=== PATIENT | male | born 1965 | race Caucasian/White ===

== ENCOUNTER → 2019-06-15 09:31 | Outpatient (CLI) | payer BC, SELFPAY | PROVIDERS: PCP Family Medicine; Visit Provider Nurse Practitioner | DX: M25.511 Pain in right shoulder (principal) ==

== ENCOUNTER → 2019-06-19 09:40 | Outpatient (CLI) | payer BC, SELFPAY ==
--- NOTE | 2019-06-19 09:44 | MR_ITS ---
PROCEDURE: MR SHOULDER RT WO CON CLINICAL INDICATION: ACUTE PAIN OF RIGHT SHOULDER Right shoulder pain with limited range of motion COMPARISON: 06/09/2019 TECHNIQUE: Routine multiplanar multi echo sequences are performed without contrast FINDINGS: Hypertrophic changes are present at the acromioclavicular joint. There is a downsloping acromion with subacromial stenosis of approximately 6 mm. There is a complete tear of the infraspinatus tendon with retraction of the musculotendinous fibers and edema within the infraspinatus muscle and fluid in the subdeltoid region at the infraspinatus area. The teres minor tendon and subscapularis tendon have an unremarkable appearance. The bicipital tendon is in place. The supraspinatus tendon appears intact. No obvious labral tear. No fracture or dislocation IMPRESSION: Complete tear of the infraspinatus tendon with retraction of the musculotendinous fibers Dictated by: Dereck Wise MD 06/20/2019 15:28 Signed by: <Electronically signed by Dereck Wise MD in [place]> 06/20/2019 15:28
== END ==
PROVIDERS: PCP Family Medicine; Visit Provider Nurse Practitioner
DX: M25.511 Pain in right shoulder (principal)
CPT/HCPCS: 73221

== ENCOUNTER → 2019-06-29 12:14 | Outpatient (CLI) | payer BC, SELFPAY ==
--- NOTE | 2019-06-29 | ECG_ITS ---
APPROVED REPORT Exam: Resting ECG HR:74 bpm ECG Measurements Heart Rate 74 AXES ND 156 P 42 QRSd 82 QRS 48 QT 372 T 48 QTc 412 <Conclusion> Normal sinus rhythm Low voltage QRS Borderline ECG Electronically signed by : Carlos Viera, 06/29/2019 17:38:40
--- NOTE | 2019-06-29 12:17 | XR_ITS ---
PROCEDURE: XR SHOULDER RT MIN 2V CLINICAL INDICATION: shoulder pain COMPARISON: Shoulder R from 06/09/2019 FINDINGS: The clavicle is intact. There is minor degenerate change of the AC joint. There is a lateral downsloping acromion process which could predispose to a mild degree of impingement syndrome. There are no soft tissue calcifications. IMPRESSION: Lateral down-sloping acromion process as described, no other significant abnormality noted Dictated by: Dr. Robbie Loo MD 06/29/2019 12:44 Signed by: <Electronically signed by Dr. Robbie Loo MD in [place]> 06/29/2019 12:44
== END ==
PROVIDERS: PCP Family Medicine; Visit Provider Orthopaedic Surgery
DX: S46.911A Strain of unspecified muscle, fascia and tendon at shoulder and upper arm level, right arm, initial encounter (principal)
CPT/HCPCS: 73030; 93005

== ENCOUNTER → 2019-06-29 14:18 | Outpatient (CLI) | payer BC, SELFPAY ==
--- NOTE | 2019-06-29 14:34 | XR_ITS ---
PROCEDURE: XR CHEST 2V CLINICAL HISTORY: pre op Smoker COMPARISON: CXR CHEST(2 VIEWS-NOT PORTABLE) from 08/12/2013 CTAC CTA-CHEST from 08/12/2013 CXR CHEST(2 VIEWS-NOT PORTABLE) from 08/13/2013 CXR CHEST(2 VIEWS-NOT PORTABLE) from 06/25/2016 FINDINGS: Borderline cardiomegaly without failure Chronic coarsening of the bronchovascular markings. Increased density in the left infrahilar region possibly due to summation artifact. Cannot exclude possibility of a developing mass/nodule. Consider chest CT for further evaluation. The remaining lungs are clear. No acute bony findings. IMPRESSION: COPD with possible left lower lobe mass. Consider chest CT for further evaluation Dictated by: Dereck Wise MD 06/29/2019 15:00 Signed by: <Electronically signed by Dereck Wise MD in [place]> 06/29/2019 15:00
[2019-06-29 14:50] LABS: Basophils % 0.4 % (0.1-2.0); Eosinophils # 0.3 K/mm3 (0.0-0.4); Eosinophils % 3.5 % (0.1-12.0); Hematocrit 51.4 % (42.0-52.0); Hemoglobin 17.1 g/dL (14.1-18.0); Lymphocytes # 2.2 K/mm3 (0.7-4.5); Lymphocytes % 30.5 % (10-50); Mean Corpuscular HGB Conc 33.2 g/dL (31.8-35.4); Mean Corpuscular Hemoglobin 32.2 pg (27.0-31.2); Mean Platelet Volume 7.5 fl (7.4-10.4); Monocytes # 0.7 K/mm3 (0.1-1.0); Monocytes % 9.1 % (1.7-9.3); Neutrophils % 56.4 % (37.0-80.0); Platelet Count 213 K/mm3 (142-424); Red Cell Distribution Width 13.5 % (11.5-17.5); White Blood Count 7.2 K/mm3 (4.8-10.8)
[2019-06-29 14:53] LABS: INR 0.94 (0.9-1.1); Prothrombin Time 9.8 seconds (9.4-11.8)
[2019-06-29 16:24] LABS: Alanine Aminotransferase 50 U/L (12-78); Albumin/Globulin Ratio 1.4 (1.1-1.8); Alkaline Phosphatase 100 U/L (46-116); Anion Gap 13.2 mEq/L (5-15); Aspartate Amino Transferase 21 U/L (15-37); Bilirubin,Total 0.4 mg/dL (0.2-1.0); Blood Urea Nitrogen 15 mg/dL (7-18); Calcium 9.2 mg/dL (8.5-10.1); Carbon Dioxide 26 mmol/L (21.0-32.0); Chloride 106 mmol/L (98-107); Creatinine,Serum 0.97 mg/dL (0.70-1.30); Estimated Glomerular Filt Rate 81 ml/min (>60); GFR (African American) 98 ML/MIN (>60); Globulin 2.8 gm/dl (1.3-3.2); Glucose 96 mg/dL (74-106); Potassium 4.2 mmoL/L (3.5-5.1); Sodium 141 mmol/L (136-145); Total Protein,Serum 6.8 gm/dL (6.4-8.2)
== END ==
PROVIDERS: Visit Provider Orthopaedic Surgery
DX: S46.911A Strain of unspecified muscle, fascia and tendon at shoulder and upper arm level, right arm, initial encounter (principal)
CPT/HCPCS: 36415; 71046; 80053; 85025; 85610

== ENCOUNTER → 2019-07-13 10:16 | Outpatient (CLI) | payer BC, SELFPAY ==
--- NOTE | 2019-07-13 10:17 | CT_ITS ---
PROCEDURE: CT CHEST WO/W CON CLINCAL INDICATION: Pre-OP Possible mass seen left chest on previous CT scan of the chest 08/12/2013 COMPARISON: CTA CTA-CHEST from 08/12/2013 TECHNIQUE: IV Contrast: 75ml Optiray 350 Axial images obtained with sagittal and coronal reformats. All CT scans at the facility use one or more dose reduction, viz: automated exposure control, ma/kV adjustment per patient size (including targeted exams where dose is matched to indication, i.e. head), or iterative reconstruction technique. Initially scans were performed without IV contrast followed by repeat scans after injection of IV contrast. FINDINGS: HEART: Unremarkable. Normal heart size. No significant pericardial effusion. There is minimal coronary artery calcification noted. MEDIASTINAL AND HILAR STRUCTURES: No mediastinal or hilar mass evident. There are several normal-sized right paratracheal, subcarinal and right hilar nodes. PULMONARY ARTERIES: Unremarkable, no obvious PE although the contrast timing was not set up for a PE exam AORTA: No acute finding. No thoracic aortic aneurysm or dissection evident. LUNGS: The lung valentin are fairly well expanded and appear clear of infiltrate. There is no abnormal mass in either lung field. There is mild diffuse pleural thickening and/or scarring left apex and left posterior gutter. Possibly there has been a previous empyema in the past. PLEURAL SPACES: No significant effusion. No evidence of pneumothorax. BONY STRUCTURES: There are moderate multilevel degenerate changes of the thoracic spine.. LYMPH NODES: There is a slightly enlarged fatty replaced node in the left axilla. UPPER ABDOMEN: Both adrenal glands appear normal. ADDITIONAL FINDINGS: No other significant abnormalities. IMPRESSION: Nonacute chest findings Dictated by: Dr. Robbie Loo MD 07/13/2019 11:[address] Robbie Loo MD in [place] 07/13/2019 11:55
== END ==
PROVIDERS: PCP Family Medicine; Visit Provider Orthopaedic Surgery
DX: Z01.811 Encounter for preprocedural respiratory examination (principal)
CPT/HCPCS: 71270; Q9967

== ENCOUNTER 2019-07-19 10:10 | Observation (INO) ==
--- NOTE | 2019-07-19 10:49 | Progress Note ---
[facility] Anesthesia Checklist - Patient Identification Patient Identification: Arm Band, Verbal (Name & ) - Structural Data Admitted From: Home Planned Operative Procedure/s: r dmitriy rcr Consent for Planned Operative Procedure(s) Verified: Yes Verified Documents: History and Physical - NPO Status Verified Time NPO: 00:00 - Additional verifications Patient : No Anesthesia Reactions: No Hx Blood Transfusions: No Blood Transfusion Reaction: No Cephalosporin Allergy: No Previous Colonoscopy: No - Cardiovascular Assessment Heart Sounds: S1 & S2 Pulse Strength: Baseline Pulse Rhythm: Regular Peripheral Edema: No - Airway Assessment C-Spine Mobility Assessed: Yes TMJ Mobility Assessed: Yes Dentition: Good Dentition - Neurological Assessment Level of Consciousness: Awake, Alert, Appropriate Hx Seizures: No Numbness or tingling in extremities: No - Anesthesia Plan Anesthesia Risk discussed: Yes Anesthesia Plan: Verified ASA Class: III Anesthesia Type: General [facility] History I have reviewed the patient's past medical history: Yes Medical History: Reports:: Gastroesophageal Reflux Disease(GERD) Denies:: Cancer, Diabetes Mellitus Type 1, Diabetes Mellitus Type 2, Internal Pacemaker, MRSA *Have you ever received a pneumonia vaccine?: No *Have you received a flu vaccine this season?: No Other Medical History: Reports: Arthritis Anesthesia experience/problems:: none Laterality Cases: Right: Arthroscopy Knee, Other Other Surgeries: Yes: Other. No: Pacemaker Amputation: No - *Social History Educational Level: Completed High School Smoking Status: Current every day smoker Tobacco Type: cigarettes # Packs/Day (cigarettes): 1 Alcohol Intake: current Alcohol Intake Frequency:: holidays/special occasions only Substance Use Type: unknown *Occupational Status:: retired *Travel in the last 8 weeks: None Family Hx:: No significant family history
--- NOTE | 2019-07-19 17:28 | Progress Note ---
[facility] Anesthesia Record Part II Discharge Time: 17:50 Destination: [facility] PACU nurse assessment reviewed?: Yes Patient Condition:: Good Anesthesia Complications:: None Swallowing reflex intact?: Yes Cyanosis?: No
--- NOTE | 2019-07-19 17:28 | Progress Note ---
[facility] Anesthesia Record Part I Intake, IV Amount: 2,000 Estimated blood loss (mL): 10 Urine output (mL): 700 Blood Pressure: 124/71 SaO2: 90 Pulse Rate: 87 Respiratory Rate: 16 Temperature: 97 F Patient is:: Drowsy, Stable Stable to PACU at:: 17:20
--- NOTE | 2019-07-19 21:28 | Operative Note ---
Date of procedure: 07/19/19 Pre-op Diagnosis:: RIGHT shoulder rotator cuff tear, AC joint arthropathy, possible biceps tendinopathy Post-op Diagnosis:: RIGHT shoulder rotator cuff tear, AC joint arthropathy, biceps tendinopathy Procedure performed:: RIGHT shoulder arthroscopy, biceps tenodesis, rotator cuff repair, distal clavicle excision Surgeon:: Yovana Andrade MD Automobile Detailer(s):: Vasquez Burton MD TRAILHEAD CONSTRUCTION WORKER:: Jayro Silva Anesthesia: GETA, regional, local Estimated blood loss (mL): 10 Clinical Note:: 54 year old right hand dominant male who sustained an injury to the right shoulder around 1 month ago. He had an 800lb car port dropped on that shoulder, which created significant pain. He went to the Emergency Room, where XR were negative; he was placed in an arm sling and given toradol/prednisone. His pain did not improve, so he was seen by his primary care physician, who ordered an MRI. No neck pain, no numbness or tingling in the arm. He has never injured this shoulder before nor has he had surgery on it. He has a history of nephrolithiasis (none currently), but denies other medical conditions. He is a smoker and smokes 1ppd; denies shortness of breath or chest pain at baseline or with exertion. His medications include: dicyclomine, methocarbamol, naproxen, ranitidine and tamulosin. Ketorolac and prednisone were added after his current injury. He is allergic to levofloxacin. MRI demonstrated a tear of the RTC (infraspinatus, complete w/mild retraction); biceps was unremarkable but that patient has anterior joint pain. Prior to the injury he had occasional sharp pain over the AC joint. I discussed treatment options with the patient, including PT/non-operative therapy vs surgical repair. Ideally I recommend RTC repair, but he is a heavy smoker. I counseled him on the risk of RTC repair failure (failure to heal or retearing) in smokers, and that he absolutely needs to quit smoking to optimize the chance he has a good outcome. Despite this risk, he is young and active, and I feel at least an attempt at repair is warranted, even if it ultimately fails. The patient vocalized understanding of the risk he is at being a smoker, and would like to proceed with surgery. He was evaluated and cleared by his primary care physician. I discussed the risks of surgery with the patient, including bleeding, infection, neurovascular damage, persistent pain, rotator cuff repair failure, and need for further surgery in the future; the patient vocalized understanding and provided informed consent. Operative findings:: rotator cuff repair = open, implants: Giraldo [employer] Nephew Healicoil 4.75mm suture anchor x1, footprint ultra suture anchor x1, Q-fix suture anchor x1 biceps tenodesis = open, implant: [employer]hew Q-fix suture anchor x1 distal clavicle excision = open Operative note:: The patient was identified in preoperative holding and the right shoulder signed by myself. Consent was reviewed with the patient and all questions answered. Interscalene nerve block was performed by anesthesia and the patient was taken to the OR. He was placed supine on the operative table, 2 g Ancef infused and general anesthesia induced. The patient was then positioned into the beachchair position with the head in a neutral position and well supported with all bony prominences padded. The right shoulder was then prepped and draped in the usual sterile fashion for shoulder arthroscopy. Timeout was performed, identifying the correct patient, correct procedure, and correct site. I began the procedure by making a standard posterior viewing portal through which a 30 degree arthroscope was inserted into the shoulder. I began with a diagnostic scope of the glenohumeral joint. There was a significant amount of labral fraying superiorly and the biceps itself showed mild degeneration and longitudinal tearing. Using a spinal needle and an outside in technique an anterior working portal was established and a 7 mm cannula placed. Through this cannula a probe was placed and used to palpate the intraarticular structures and complete the diagnostic arthroscopy. No loose bodies were seen in the axillary pouch, the articular cartilage of the glenoid and humeral head were seen to be in good condition with no significant thinning or focal defects. The rotator cuff did appear to be torn from inside the joint, and I suspected that it was confined to the infraspinatus. A spinal needle was used to penetrate the biceps tendon and PDS suture placed to tag it. Next, arthroscopic scissors were used to perform a biceps tenotomy and the tendon was transected at its attachment site/anchor. Shaver was then used to debride the tendon stump remaining on the anchor side as well as some additional labral fraying. The scope was then withdrawn from the joint and placed into the subacromial space. A lateral portal was established with a spinal needle and through this portal a shaver was placed. Subacromial decompression was then performed and the infraspinatus tear identified. At this point the shoulder had begun to swell significantly, as the patient is already a large man and fluid extravasation created a situation in which arthrosocpic rotator cuff tear would be difficult. I made the decision to proceed with open rotator cuff repair. A longitudinal incision was made over the lateral aspect of the right shoulder over the junction of the anterior middle thirds of the deltoid. This incision was approximately 5 cm long. Skin was incised with a 10 blade and subcutaneous tissue bluntly spread with Metzenbaum scissors. The raphae at the junction of the anterior and middle thirds of the deltoid was identified and bluntly spread with jayy as well. The underlying rotator cuff was identified with a small amount of overlying bursal tissue. The bursa was excised and rotator cuff tear was identified. The tear was small, full-thickness and confined to the infraspinatus. The tear was repaired with 2 suture anchors: one Giraldo [employer] Nephew Healicoil anchor medially, with suture tape through the cuff in a vertical mattress fashion. The anchor was loaded with a second suture as well, which was passed through the tendon; four total suture limbs were threaded through the tendon. All 4 sutures were then loaded into a lateral row anchor, another Giraldo [employer] Nephew anchor, and placed laterally, compressing the tendon to its footprint. A small dog ear was identified in the posterior aspect of the tendon; this was repaired with a free needle and Q-fix anchor (all suture anchor). The final portion of the procedure was the biceps tenodesis and given that we were now performing an open procedure, we were able to externally rotate the shoulder and identified the biceps tendon within the bicipital groove. The tendon was extracted from the groove and the tendon sheath debrided. The biceps was then tenodesed with another Q-fix suture anchor in a suprapectoral position within the bicipital groove. The patient expressed the desire for a distal clavicle excision pre-operatively, so a small incision was made over the AC joint, subcutaneous tissue bluntly dissected and the joint capsule split and elevated off the joint. A small microsagittal saw was used to resect the distal 3-4mm of bone from the distal clavicle. This concluded the procedure and all wounds were irrigated with sterile saline and then closed in a layered fashion. Sterile dressings were applied and the patient placed in a shoulder immobilizer, extubated and transferred to PACU in good condition. There were no complications during this case. Tourniquet time (min): 0 Condition: stable Disposition: PACU Specimens:: none Complications:: none
--- NOTE | 2019-07-19 22:10 | History & Physical Report ---
*Admission Date: 07/19/19 *Reason for consult:: hypoxemia, shortness of breath s/p R shoulder arthroscopy *History of present illness: 54yo M admitted for overnight observation after R shoulder arthroscopy. The patient underwent RTC repair, biceps tenodesis and distal clavicle excision performed under general anesthesia with region nerve block (interscalene), supplemented with local at the incision sites. Surgery went well without complication, but in PACU his O2 saturation hovered in the upper 80s/low 90s on room air. He felt slightly short of breath and did not feel comfortable with discharge home. He was admitted with supplemental oxygen and continuous pulse oximetry. [facility] History I have reviewed the patient's past medical history: Yes Medical History: Reports:: Gastroesophageal Reflux Disease(GERD) Denies:: Cancer, Diabetes Mellitus Type 1, Diabetes Mellitus Type 2, Internal Pacemaker, MRSA, Seizures *Have you ever received a pneumonia vaccine?: No *Have you received a flu vaccine this season?: No Other Medical History: Reports: Arthritis. Denies: Blood Transfusion Reaction Anesthesia experience/problems:: none Laterality Cases: Right: Arthroscopy Knee, Arthroscopy Shoulder, Other Other Surgeries: Yes: Other. No: Pacemaker Amputation: No - *Social History Educational Level: Completed High School Smoking Status: Current every day smoker Tobacco Type: cigarettes # Packs/Day (cigarettes): 1 Alcohol Intake: current Alcohol Intake Frequency:: holidays/special occasions only Substance Use Type: unknown *Occupational Status:: retired Housing: house Household Members: spouse *Travel in the last 8 weeks: None Family Hx:: No significant family history Review of Systems - Review of Systems Review of systems:: pertinent systems reviewed and negative unless documented below Meds Home Medications Medication Instructions Recorded Confirmed Type Oxycodone HCl/Acetaminophen 1 tab PO QID PRN 07/18/19 07/19/19 History [Percocet 7.5/325mg tablet] Naproxen Sodium 550 mg PO NEEDED PRN 07/19/19 07/19/19 History Trazodone HCl 150 mg PO HS 07/19/19 07/19/19 History Allergies Allergy/AdvReac Type Severity Reaction Status Date / Time levofloxacin [From Levaquin] Allergy Verified 07/05/19 11:28 adhesive AdvReac Unknown Verified 07/15/19 22:04 Exam Vital signs and Labs for Last 24 Hours: Temp Pulse Resp BP Pulse Ox 97.9 F 93 H 16 121/65 93 L 07/19/19 21:30 07/19/19 21:30 07/19/19 21:30 07/19/19 21:30 07/19/19 21:30 Laboratory Results - last 24 hr 07/19/19 13:15: Urine Color Yellow, Urine Appearance Clear, Urine pH 7.5, Ur Specific [place] 1.015, Urine Protein Negative, Urine Glucose (UA) Negative, Urine Ketones Negative, Urine Blood Negative, Urine Nitrate Negative, Urine Bilirubin Negative, Urine Urobilinogen 1.0, Ur Leukocyte Esterase Negative, Urine WBC Occasional, Calcium Oxalate Crystal 3+ I & O for Last 24 hours: Intake & Output 07/17/19 07/18/19 07/19/19 07/20/19 11:59 11:59 11:59 11:59 Intake Total 2300 / 2300 Output Total 850 / 850 Balance 1450 / 1450 Weight 280 lb Narrative: exam as performed in PACU: - *Routine HEENT Exam Head: Present: normocephalic Eye: Present: EOMI ENT: Present: mucous membranes moist - *Routine Respiratory Exam Absent: respiratory distress - *Routine Cardiovascular Exam Present: RRR - *Routine Abdominal Exam Present: soft. Absent: tenderness - *Routine Extremities Exam Comments: RUE in shoulder immobilizer dressings c/d/i, no strikethrough wiggles fingers; AIN/PIN/ulnar nerves motor intact sensation diminished in m/r/u distributions; nerve block still in effect palpable radial pulse at the wrist RUE Results - Labs Labs: All other labs normal. Assessment and Plan (1) Rotator cuff tear Current visit: Yes Status: Acute Category: Medical Code(s): M75.100 - Unspecified rotator cuff tear or rupture of unspecified shoulder, not specified as traumatic (2) Hypoxemia Current visit: Yes Status: Acute Category: Medical Code(s): R09.02 - Hypoxemia - Assessment and plan all Dx Assessment and Plan for all problems:: 54yo M with hypoxemia s/p R shoulder arthroscopy with RTC repair, biceps tenodesis, distal clavicle excision -- continuous pulse oximetry -- supplemental O2 PRN to maintain SaO2 >92% -- chest XR -- continue sling RUE, icer shoulder PRN; NWB RUE -- SCDs BLE -- encourage IS 10x/hr -- Dr. Haider to see in am
[2019-07-20 06:46] LABS: Basophils % 0.1 % (0.1-2.0); Eosinophils # 0.1 K/mm3 (0.0-0.4); Eosinophils % 0.5 % (0.1-12.0); Hematocrit 47.6 % (42.0-52.0); Hemoglobin 15.3 g/dL (14.1-18.0); Lymphocytes # 1.3 K/mm3 (0.7-4.5); Lymphocytes % 7.9 % (10-50); Mean Corpuscular HGB Conc 32.2 g/dL (31.8-35.4); Mean Corpuscular Volume 99.3 fl (80-94); Mean Platelet Volume 8.8 fl (7.4-10.4); Monocytes # 0.9 K/mm3 (0.1-1.0); Monocytes % 5.4 % (1.7-9.3); Neutrophils # 14.4 K/mm3 (1.8-7.8); Neutrophils % 86.1 % (37.0-80.0); Platelet Count 189 K/mm3 (142-424); Red Cell Distribution Width 13.5 % (11.5-17.5); White Blood Count 16.8 K/mm3 (4.8-10.8)
--- NOTE | 2019-07-20 07:21 | Consult Report ---
*Admission Date: 07/19/19 *Reason for consult:: Postoperative hypoxia *History of present illness: 54yo M admitted for overnight observation after R shoulder arthroscopy. The patient underwent RTC repair, biceps tenodesis and distal clavicle excision performed under general anesthesia with region nerve block (interscalene), supplemented with local at the incision sites. Surgery went well without complication, but in PACU his O2 saturation hovered in the upper 80s/low 90s on room air. He felt slightly short of breath and did not feel comfortable with discharge home. He was admitted with supplemental oxygen and continuous pulse oximetry. Patient continued to have brief desaturations into the high 80s overnight. He does endorse a congested feeling in his chest. He did not sleep well as he is used to sleeping on his side and on a wedge pillow. Sleeping on his back was uncomfortable. He has not had any significant sputum production. He has not had any identified fevers nor has he had chills. Chest x-ray was performed shortly after admission and interpretation overnight is mild CHF with infiltrate versus atelectasis [facility] History I have reviewed the patient's past medical history: Yes Medical History: Reports:: Gastroesophageal Reflux Disease(GERD) Denies:: Cancer, Diabetes Mellitus Type 1, Diabetes Mellitus Type 2, Internal Pacemaker, MRSA, Seizures *Have you ever received a pneumonia vaccine?: No *Have you received a flu vaccine this season?: No Other Medical History: Reports: Arthritis. Denies: Blood Transfusion Reaction Anesthesia experience/problems:: none Laterality Cases: Right: Arthroscopy Knee, Arthroscopy Shoulder, Other Other Surgeries: Yes: Other. No: Pacemaker Amputation: No - *Social History Educational Level: Completed High School Smoking Status: Current every day smoker Tobacco Type: cigarettes # Packs/Day (cigarettes): 1 Alcohol Intake: current Alcohol Intake Frequency:: holidays/special occasions only Substance Use Type: unknown *Occupational Status:: retired Housing: house Household Members: spouse *Travel in the last 8 weeks: None Family Hx:: No significant family history Review of Systems - *Cardiovascular Denies chest pain - *Respiratory Reports chest congestion, Reports cough, Denies change in phlegm color, Denies coughing up blood Meds Home Medications Medication Instructions Recorded Confirmed Type Oxycodone HCl/Acetaminophen 1 tab PO QID PRN 07/18/19 07/19/19 History [Percocet 7.5/325mg tablet] Naproxen Sodium 550 mg PO NEEDED PRN 07/19/19 07/19/19 History Trazodone HCl 150 mg PO HS 07/19/19 07/19/19 History Allergies Allergy/AdvReac Type Severity Reaction Status Date / Time levofloxacin [From Levaquin] Allergy Verified 07/05/19 11:28 adhesive AdvReac Unknown Verified 07/15/19 22:04 Exam Vital signs and Labs for Last 24 Hours: Temp Pulse Resp BP Pulse Ox 98.0 F 95 H 20 145/82 H 94 L 07/20/19 04:00 07/20/19 04:00 07/20/19 04:00 07/20/19 04:00 07/20/19 04:00 Laboratory Results - last 24 hr 07/19/19 13:15: Urine Color Yellow, Urine Appearance Clear, Urine pH 7.5, Ur Specific [place] 1.015, Urine Protein Negative, Urine Glucose (UA) Negative, Urine Ketones Negative, Urine Blood Negative, Urine Nitrate Negative, Urine Bilirubin Negative, Urine Urobilinogen 1.0, Ur Leukocyte Esterase Negative, Ur ine WBC Occasional, Calcium Oxalate Crystal 3+ 07/20/19 06:22: WBC 16.8 H, RBC 4.80, Hgb 15.3, Hct 47.6, MCV 99.3 H, MCH 31.9 H , MCHC 32.2, RDW 13.5, Plt Count 189, MPV 8.8, Neut % (Auto) 86.1 H, Lymph % (Auto) 7.9 L, C[place] % (Auto) 5.4, Eos % (Auto) 0.5, Baso % (Auto) 0.1, Neut # (Auto) 14.4 H, Lymph # (Auto) 1.3, [place] # (Auto) 0.9, Eos # (Auto) 0.1, Baso # (Auto) 0.0 I & O for Last 24 hours: Intake & Output 07/17/19 07/18/19 07/19/19 07/20/19 11:59 11:59 11:59 11:59 Intake Total 2780 / 2780 Output Total 1050 / 1050 Balance 1730 / 1730 Weight 280 lb 299 lb Narrative: Patient is awake and alert sitting up in the chair this morning. HEENT exam is grossly normal. Lung exam has some intermittent wheezing at the left base that cleared with repetitive deep breathing. He also had some rales at the right lateral base that cleared with deep breathing. Otherwise lung exam was unremarkable. Heart had a regular rate and rhythm. Abdomen is obese. Right shoulder is heavily bandaged Internal Medicine - CN: Reslt - Labs CBC & Chem 7: 07/20/19 06:22 Labs: Short CBC 07/20/19 Range/Units 06:22 WBC 16.8 H (4.8-10.8) K/mm3 Hgb 15.3 (14.1-18.0) g/dL Hct 47.6 (42.0-52.0) % Plt Count 189 (142-424) K/mm3 Urine 07/19/19 Range/Units 13:15 Urine Color Yellow (Yellow) Urine Appearance Clear (Clear) Urine pH 7.5 (5.0-8.5) Ur Specific [place] 1.015 (1.005-1.030) Urine Protein Negative (Negative) Urine Glucose (UA) Negative (Negative) Assessment and Plan (1) Rotator cuff tear Current visit: Yes Status: Acute Category: Medical Code(s): M75.100 - Unspecified rotator cuff tear or rupture of unspecified shoulder, not specified as traumatic (2) Hypoxemia Current visit: Yes Status: Acute Category: Medical Code(s): R09.02 - Hypoxemia - Assessment and plan all Dx Assessment and Plan for all problems:: Patient has had some hypoxemia overnight. Chest x-ray suggestive of some fluid overload. I am discontinuing patient's IV fluids this morning and giving him intravenous Lasix 40 mg x 1. While his lung exam is not consistent with pneumonia his white count returns elevated this morning at 16,000. Patient is received appropriate postoperative antibiotics and I am going to add on azithromycin 500 mg intravenously. Patient has been encouraged to use incentive spirometer. Furthermore in speaking with anesthesiology service and interscalene block does have the side effect of possibly anesthetizing the phrenic nerve. Patient reported that his fingers were tingling this morning and this is a good sign. Perhaps the nerve block is also contributing to his hy poxia. Patient will be given breathing treatments this morning as well as he felt like he benefited from the DuoNeb he received postoperatively. Patient will be watched throughout the day. He has been encouraged to ambulate.
--- NOTE | 2019-07-20 07:31 | Pharmacy Consult Notes ---
[facility] Pharmacy VTE Monitoring - Patient Demographics Admission date: 07/19/19 Report Date: 07/20/19 Time: 07:30 Allergies/Adverse Reactions: Patient Allergies levofloxacin [From Levaquin] Allergy (Verified 07/05/19 11:28) adhesive Adverse Reaction (Unknown, Verified 07/15/19 22:04) Height: 1.85 m Weight: 135.624 kg Patient Problems: Current Active Problems Rotator cuff tear (Acute) Hypoxemia (Acute) - VTE Risk Labs: VTE Related Lab Results Hgb 15.3 g/dL (14.1-18.0) 07/20/19 06:22 Hct 47.6 % (42.0-52.0) 07/20/19 06:22 Plt Count 189 K/mm3 (142-424) 07/20/19 06:22 Was VTE Risk Assessment Performed: Yes VTE Score: 5 VTE Risk Level: Low Risk - Prophylaxis VTE Prophylaxis Ordered?: Yes Types of VTE Prophylaxis: IPCS Thigh High Location of Applied Device: Bilateral Lower Extremeties - VTE Diagnosis Confirmed Treatment or plan recommended: Continue Current Treatment
[2019-07-20 07:37] LABS: Anion Gap 14.1 mEq/L (5-15); Calcium 8.8 mg/dL (8.5-10.1)
[2019-07-20 08:17] LABS: Lymphocytes % 9 % (10-50); Monocytes % 5 % (2-9); Neutrophils % 84 % (42-76); Total Cells Counted 100
[2019-07-20 08:18] LABS: RBC Morphology Normal
--- NOTE | 2019-07-25 22:19 | Discharge Summary ---
General - General Admission date:: 07/19/19 Discharge date: 07/20/19 HPI HPI: 54yo M admitted for overnight observation after R shoulder arthroscopy. The patient underwent RTC repair, biceps tenodesis and distal clavicle excision performed under general anesthesia with region nerve block (interscalene), supplemented with local at the incision sites. Surgery went well without complication, but in PACU his O2 saturation hovered in the upper 80s/low 90s on room air. He felt slightly short of breath and did not feel comfortable with discharge home. He was admitted with supplemental oxygen and continuous pulse oximetry. Hospital Course Hospital Course: Overnight the patient did well on continuous pulse oximetry, and by the morning of POD 1 he was saturating >90 on room air. His pain was well-controlled with oral medication so he was discharged home with follow-up with both Drs. Andrade and Vitaly. Objective Vital signs: Temp Pulse Resp BP Pulse Ox 98.4 F 101 H 19 125/69 93 L 07/20/19 16:00 07/20/19 16:00 07/20/19 16:00 07/20/19 16:00 07/20/19 16:00 no acute distress - *Routine HEENT Exam Head: Present: normocephalic Eye: Present: EOMI ENT: Present: mucous membranes moist - *Routine Respiratory Exam Present: CTA bilaterally - *Routine Cardiovascular Exam Present: RRR - *Routine Abdominal Exam Present: soft. Absent: tenderness - *Routine Extremities Exam Comments: RUE in shoulder immobilizer dressings c/d/i, no strikethrough wiggles fingers; AIN/PIN/ulnar nerves motor intact sensation diminished in m/r/u distributions; nerve block still in effect palpable radial pulse at the wrist RUE - *Routine Neurological Exam Present: alert, oriented X3 DS: Diagnosis - Discharge Diagnosis (1) Rotator cuff tear Status: Acute (2) Hypoxemia Status: Acute Discharge Plan - Patient Discharge Instructions ACTIVITY: Other (NWB RUE with sling at all times) DIET: continue same diet Additional Instructions: no use of R arm sling at all times detailed discharge instructions given to patient after surgery Patient Instructions: DI for Rotator Cuff Repair - Follow up Plan Follow up with: Yovana Andrade MD [Physician] - 07/23/19 1:30 pm Carlos Haider MD [Primary Care Provider] - 1 week Disposition: Home, Self-Assisted Medications: Home Medications Medication Instructions Recorded Confirmed Type Trazodone HCl 150 mg PO HS 07/19/19 07/23/19 History Oxycodone HCl/Acetaminophen 1 tab PO Q6HP PRN 07/20/19 07/23/19 History [Percocet 5/325mg tablet] nicotine 21 mg/24 hr daily 1 patch TRANSDERMA Q24H #7 each 07/23/19 07/23/19 Rx transdermal patch Prescriptions/Medication Reconciliation: Continued Trazodone HCl 150 mg PO HS Oxycodone HCl/Acetaminophen [Percocet 5/325mg tablet] 1 tab PO Q6HP PRN PRN Reason: PAIN Discontinued Naproxen Sodium 550 mg PO BID No Action nicotine 21 mg/24 hr daily transdermal patch 1 patch TRANSDERMA Q24H #7 each - Problem Reconciliation Problems Reviewed?: Yes
== END 2019-07-20 17:40 | disposition home or self-care (01) ==
LOC: OR 10:10 → 2ND 10:10
PROVIDERS: ADMIT Orthopaedic Surgery; ATTEND Orthopaedic Surgery
CPT/HCPCS: 36415; 71010; 71045; 80048; 81001; 83880; 85007; 85025; 94640; 96374; C1713; G0378; J0456; J2405; J2710

== ENCOUNTER → 2019-09-13 10:23 | Outpatient (CLI) | payer BC, SELFPAY ==
--- NOTE | 2019-09-13 10:26 | XR_ITS ---
PROCEDURE: XR SHOULDER RT MIN 2V CLINICAL INDICATION: Shoulder pain Follow-up surgery COMPARISON: Shoulder R from 06/09/2019 XR SHOULDER RT MIN 2V from 06/29/2019 FINDINGS: Status post osteotomy of the acromioclavicular joint. There are mild osteoarthritic changes of glenohumeral joint. Humeral head is located. IMPRESSION: Postsurgical changes with mild osteoarthritis of the glenohumeral joint Dictated by: Dereck Wise MD 09/13/2019 15:32 Electronically signed by Dereck Wise MD in [place] 09/13/2019 15:32
== END ==
PROVIDERS: PCP Family Medicine; Visit Provider Orthopaedic Surgery
DX: M19.011 Primary osteoarthritis, right shoulder (principal); M75.101 Unspecified rotator cuff tear or rupture of right shoulder, not specified as traumatic; M75.21 Bicipital tendinitis, right shoulder
CPT/HCPCS: 73030

== ENCOUNTER 2020-01-15 08:00 | Outpatient (RCR) | payer BC, SELFPAY ==
--- NOTE | 2019-07-25 16:26 | HMH.PTOPEV ---
PT Outpatient Evaluation Rehab PT Outpatient Evaluation Start: 07/25/19 14:53 Freq: Status: Active Protocol: Document 07/25/19 15:36 DANIELLEELBA (Rec: 07/25/19 16:26 BRI [id number]) Electronically Signed By Aditya Plaza PT 07/25/19 15:36 Outpatient Therapy Subjective History Subjective History 54 year old male pt. is referred to PT post R RTC and biceps tenodesis repair. Pt. is 6 days post-op. Pt. reports that injury happened about 6 weeks ago when he dropped an 800 lbs object on his shoulder . Pt. has been immobilized in a sling approximately since the injury and has not been moving his R arm much since. Note and eval done by student PT Henrique Herrera Chief Complaint Pain,Weakness Symptom Type Throb,Sharp Symptoms Relieved By Rest/Positioning,Ice Symptoms Aggravated By Physical Activity,Lifting Prior Functional Limitations None Current Functional Limitations Reaching,Lifting,Housework, Dressing,Driving,Sleeping, Recreation Activity Symptom Description Constant but Variable Level of pain today (0-10) 3 Pain scale - at its best (0-10) 2 Pain scale - at its worst (0-10) 7 Shoulder/Elbow Eval Shoulder Objective Measurements Palpation Tenderness tenderness shoulder exam standard right tenderness over the bicipital tendon right shoulder exam standard Shoulder Palpation Findings Tenderness Shoulder Palpation Overall Comment TTP around incision Shoulder ROM Left decreased ROM shoulder exam standard right full ROM shoulder exam standard left Right Shoulder ROM Limitations Pain pain with active ROM shoulder exam right standard pain with passive ROM shoulder exam right standard decreased ROM shoulder exam standard right Shoulder MMT Left Shoulder Strength Reason Not Measured WFL Right Shoulder Strength Reason Not Measured Orthopedic Precautions Elbow Objective Measurements Elbow ROM Left full ROM elbow exam standard left Right Elbow Extension Active Range of Motion ( 0 degrees) Elbow Extension Passive Range of Motion 0 (degrees) Elbow Flexion Active Range of Motion ( 110 degrees) Elbow Flexion Passive Range of Motion ( 120 degrees) Elbow Pronation of Forearm Range of WNL Motion (degrees) Elbow Supination of Forear
--- NOTE | 2019-08-29 09:21 | HMH.RHREAS ---
Rehab Reassessment Rehab OP Re-assessment Start: 08/29/19 08:16 Freq: Status: Active Protocol: Document 08/29/19 08:41 KENYA (Rec: 08/29/19 09:20 BALGREGORYMOE [id number]) Electronically Signed By Dwight Olmstead, PT 08/29/19 08:41 Rehab Re-assessment Subjective Subjective PT REPORTS 3-4/10 R SH PAIN ON VAS, AND FEELS 20-25% BETTER OVERALL SINCE I EVAL, 'I FELT LIKE I WOULD BE FURTHER ALONG BY NOW.' Objective Objective Notes PROM: R SH 0-120 FLX/ABD, IR 0 -45, ER 0-45 AAROM: R SH FLX/ABD 0-120 MMT: R SH FLX 3/5, ABD 3/5, IR 3+/5, ER 3/5, BICEP 4-/5, TRICEP 4/5 TTP: R SH ANT JT LINE 1-2/4, POST JT LINE 2/4 Assessment Progress Assessment Progressing as Expected Assessment Notes PT WITH IMPROVED ROM, STRENGTH , AND TTP Patient goals met STG'S 3/3 Goals Not Met LTG'S 5/5 Plan Plan PT TO CONT W/SKILLED P.T. TO MAKE FURTHER IMPROVEMENTS IN L SH AROM/AAROM/PROM, STRENGTH, AND TTP TO ALLOW OPTIMAL FUNCTION Frequency of Therapy 1-2X/WK Duration of therapy 6-8 WKS Time and Billing Re-Eval Time 15 Re-Eval Billing Units 1 PHYSICIAN CERTIFICATION: I certify the specified therapy services for Vic Benson are required, authorized, and reviewed every 30 days.
--- NOTE | 2019-09-26 08:41 | HMH.RHREAS ---
Rehab Reassessment Rehab OP Re-assessment Start: 08/29/19 08:16 Freq: Status: Active Protocol: Document 09/26/19 08:12 KENYA (Rec: 09/26/19 08:41 KENYA [id number]) Electronically Signed By Dwight Olmstead, PT 09/26/19 08:12 Rehab Re-assessment Subjective Subjective Pt reports 0-2/10 R SH pain on VAS, and feels 45-50% better overall since I Eval Objective Objective Notes PROM: R SH 0-150 FLX/ABD, IR 0 -65, ER 0-65 AAROM: R SH FLX/ABD 0-130 MMT: R SH FLX 3/5, ABD 3/5, IR 3+/5, ER 3/5, BICEP 4/5, TRICEP 4+/5 TTP: R SH ANT JT LINE 0-4, POST JT LINE 0-1/4 Assessment Progress Assessment Progressing as Expected Assessment Notes PT W/IMPROVED ROM, STRENGTH, AND TTP Patient goals met STG'S 3/3 LTG'S 3/5 Goals Not Met LTG'S 2/5-FULL ROM AND STRENGTH Plan Plan PT TO CONT W/SKILLED P.T. TO MAKE FURTHER IMPROVEMENTS IN L SH AROM/AAROM/PROM, STRENGTH, AND TTP TO ALLOW OPTIMAL FUNCTION Frequency of Therapy 1-2X/WK Duration of therapy 4-6 WKS Time and Billing Re-Eval Time 15 Re-Eval Billing Units 1 PHYSICIAN CERTIFICATION: I certify the specified therapy services for Vic Benson are required, authorized, and reviewed every 30 days.
--- NOTE | 2019-10-24 09:50 | HMH.RHREAS ---
Rehab Reassessment Rehab OP Re-assessment Start: 08/29/19 08:16 Freq: Status: Active Protocol: Document 10/24/19 08:03 KENYA (Rec: 10/24/19 09:49 BALGREGORYMOE [id number]) Electronically Signed By Dwight Olmstead, PT 10/24/19 08:03 Rehab Re-assessment Subjective Subjective PT REPORTS 0-1/10 R SH PAIN ON VAS, AND FEELS 70-75% BETTER SINCE I EVAL Objective Objective Notes PROM: R SH 0-150 FLX/ABD, IR 0 -80, ER 0-85 AAROM: R SH FLX/ABD 0-150 MMT: R SH FLX 3+/5, ABD 3/5, IR 4/5, ER 3/5, BICEP 4+/5, TRICEP 5/5 TTP: R SH ANT JT LINE 0-4, POST JT LINE 0-1/4 Assessment Progress Assessment Progressing as Expected Assessment Notes PT WITH IMPROVED ROM, STRENGTH , AND TTP Patient goals met STG'S 3/3 LTG'S 3/5 Goals Not Met LTG'S 2/5 Plan Plan PT TO CONT W/SKILLED P.T. TO MAKE FURTHER IMPROVEMENTS IN L SH AROM/AAROM/PROM, STRENGTH, AND TTP TO ALLOW OPTIMAL FUNCTION Frequency of Therapy 1-2X/WK Duration of therapy 4-6 WEEKS Time and Billing Re-Eval Time 15 Re-Eval Billing Units 1 PHYSICIAN CERTIFICATION: I certify the specified therapy services for Vic Benson are required, authorized, and reviewed every 30 days.
--- NOTE | 2019-11-21 09:18 | HMH.RHREAS ---
Rehab Reassessment Rehab OP Re-assessment Start: 08/29/19 08:16 Freq: Status: Active Protocol: Document 11/21/19 09:13 THAMOE (Rec: 11/21/19 09:18 BALGREGORYMOE [id number]) Electronically Signed By Dwight Olmstead, PT 11/21/19 09:13 Rehab Re-assessment Subjective Subjective PT REPORTS CONTINUED IMPROVEMENT W/R SH ROM, REPORTS 0-2/10 R SH PAIN ON VAS, AND FEELS ~80% BETTER SINCE I EVAL Objective Objective Notes PROM: R SH 0-165 FLX/ABD, IR 0 -85, ER 0-90 AAROM: R SH FLX/ABD 0-155 MMT: R SH FLX 4/5, ABD 4/5, IR 4/5, ER 4/5, BICEP 4+/5, TRICEP 5/5 TTP: R SH ANT JT LINE 0-4, POST JT LINE 0-4 Assessment Progress Assessment Progressing as Expected Assessment Notes PT W/SLIGHT IMPROVEMENTS IN ROM, STRENGTH, AND TTP Patient goals met STG'S 3/3 LTG'S 3/5 Goals Not Met LTG'S 2/5 Plan Plan PT TO CONT W/SKILLED P.T. TO MAKE FURTHER IMPROVEMENTS IN L SH AROM/AAROM/PROM, STRENGTH, AND TTP TO ALLOW OPTIMAL FUNCTION Frequency of Therapy 1-2X/WK Duration of therapy 3-4 WKS Time and Billing Re-Eval Time 15 Re-Eval Billing Units 1 PHYSICIAN CERTIFICATION: I certify the specified therapy services for Vic Benson are required, authorized, and reviewed every 30 days.
--- NOTE | 2019-12-26 10:30 | HMH.RHREAS ---
Rehab Reassessment Rehab OP Re-assessment Start: 08/29/19 08:16 Freq: Status: Active Protocol: Document 12/26/19 08:01 THAMOE (Rec: 12/26/19 08:42 BALGREGORYMOE [id number]) Electronically Signed By Dwight Olmstead, PT 12/26/19 08:01 Rehab Re-assessment Subjective Subjective PT REPORTS CONTINUED IMPROVEMENT W/R SH ROM, REPORTS 0-2/10 R SH PAIN ON VAS, AND FEELS ~90-93% BETTER SINCE I EVAL Objective Objective Notes PROM: R SH 0-165 FLX/ABD, IR 0 -90, ER 0-95 AAROM: R SH FLX/ABD 0-160 MMT: R SH FLX 4+/5, ABD 4/5, IR 5/5, ER 4/5, BICEP 5/5, TRICEP 5/5 TTP: R SH ANT JT LINE 0-1/4, POST JT LINE 0/4 Assessment Progress Assessment Slower Than Expected Assessment Notes PT W/SLIGHT IMPROVEMENTS IN ROM, STRENGTH, AND TTP Patient goals met STG'S 3/3 LTG'S 4/5 Goals Not Met LTG'S 1/5 Plan Plan PT TO CONT W/SKILLED P.T. TO MAKE FURTHER IMPROVEMENTS IN L SH AROM/AAROM/PROM, STRENGTH, AND TTP TO ALLOW OPTIMAL FUNCTION Frequency of Therapy 1-2X/WK Duration of therapy 3-4WKS Time and Billing Re-Eval Time 15 Re-Eval Billing Units 1 PHYSICIAN CERTIFICATION: I certify the specified therapy services for Vic Benson are required, authorized, and reviewed every 30 days.
== END 2020-01-15 09:10 | disposition home or self-care (01) ==
LOC: PT 08:00
PROVIDERS: Visit Provider Orthopaedic Surgery
DX: S46.011D Strain of muscle(s) and tendon(s) of the rotator cuff of right shoulder, subsequent encounter (principal)
CPT/HCPCS: 97010; 97014; 97016; 97110; 97140; 97163; 97164; G0283

== ENCOUNTER → 2020-01-24 13:21 | Outpatient (CLI) | payer BC, SELFPAY | PROVIDERS: PCP Family Medicine; Visit Provider Orthopaedic Surgery | DX: M75.100 Unspecified rotator cuff tear or rupture of unspecified shoulder, not specified as traumatic (principal) ==

== ENCOUNTER → 2020-02-25 13:31 | Outpatient (POV) | payer BC, SELFPAY | PROVIDERS: PCP Family Medicine; Visit Provider Specialist | DX: M79.621 Pain in right upper arm (principal); R20.2 Paresthesia of skin | CPT/HCPCS: 95886; 95908 ==

== ENCOUNTER → 2020-12-29 11:58 | Outpatient (CLI) | payer BC, SELFPAY ==
[2020-12-29 19:42] LABS: Adenovirus,PCR Not Detected (NotDetected); Bordetella Pertussis Not Detected (NotDetected); Chlamydophila Pneumoniae, PCR Not Detected (NotDetected); Coronavirus 229E Not Detected (NotDetected); Coronavirus NL63 Not Detected (NotDetected); Coronavirus OC43 Not Detected (NotDetected); Coronovirus HKU1,PCR Not Detected (NotDetected); Human Metapneumovirus Not Detected (NotDetected); Influenza A, PCR Not Detected (NotDetected); Influenza AH1, 2009 Not Detected (NotDetected); Influenza AH1, PCR Not Detected (NotDetected); Influenza AH3,PCR Not Detected (NotDetected); Influenza B, PCR Not Detected (NotDetected); Mycoplasma Pneumoniae, PCR Not Detected (NotDetected); Parainfluenza 1, PCR Not Detected (NotDetected); Parainfluenza 2, PCR Not Detected (NotDetected); Parainfluenza 3, PCR Not Detected (NotDetected); Parainfluenza 4, PCR Not Detected (NotDetected); Respiratory Syncytial Virus Not Detected (NotDetected)
[2020-12-30 00:16] LABS: Rhinovirus/Enterovirus Detected (NotDetected)
== END ==
PROVIDERS: PCP Family Medicine; Visit Provider Nurse Practitioner Family
DX: Z20.822 Contact with and (suspected) exposure to COVID-19 (principal); B34.1 Enterovirus infection, unspecified
CPT/HCPCS: 87486; 87581; 87633; 87798; U0003

== ENCOUNTER 2021-09-25 14:23 | Emergency (ER) | payer BC, SELFPAY ==
[2021-09-25 16:14] VITALS: BMI 36.9
--- NOTE | 2021-09-25 16:21 | HMH.EDUTC ---
[facility] [place] Clinical Impression: Right flank pain Disposition: Home, Self-Care Condition on Discharge: Good Instructions: DI for Flank Pain Additional Instructions: Take ibuprofen or Tylenol for pain. Follow-up with your primary care doctor for further care, call for appointment. Referrals: Carlos Haider MD [Primary Care Provider] - Medical Decision Making - Medical Records Medical records reviewed: No: I reviewed the patient's medical records. - Galo Inquiry Pt receiving controlled substance: No Vital Signs: 09/25/21 16:22 09/25/21 18:18 09/25/21 19:26 Temperature 98.1 F 98.1 F 98.1 F Temperature Source Oral Oral Pulse Rate 82 Pulse Rate [Left Radial] 82 80 Respiratory Rate 18 18 16 Blood Pressure 144/89 H Blood Pressure [Right Arm] 146/92 H 144/89 H Blood Pressure Mean [Right Arm] 110 107 02 Sat by Pulse Oximetry 97 97 Oxygen Delivery Method Room Air Room Air Room Air - Lab Data Lab results reviewed: Yes: I reviewed the patient's lab results. Lab Results 09/25/21 16:37: Urine Color Yellow, Urine Appearance Cloudy, Urine pH 7.0, Ur Specific [place] 1.025, Urine Protein Trace, Urine Glucose (UA) Negative, Urine Ketones Trace, Urine Blood Negative, Urine Nitrate Negative, Urine Bilirubin 1+ A, Urine Urobilinogen 4, Ur Leukocyte Esterase Negative 09/25/21 17:04: WBC 7.1, RBC 4.96, Hgb 16.2, Hct 47.7, MCV 96.1 H, MCH 32.6 H, MCHC 34.0, RDW 14.0, Plt Count 251, MPV 8.9, Neut % (Auto) 58.9, Lymph % (Auto) 30.9, [place] % (Auto) 6.6, Eos % (Auto) 2.7, Baso % (Auto) 0.9, Neut # (Auto) 4.2, Lymph # (Auto) 2.2, [place] # (Auto) 0.5, Eos # (Auto) 0.2, Baso # (Auto) 0.1 09/25/21 17:04: Sodium 143, Potassium 3.9, Chloride 105, Carbon Dioxide 29, Anion Gap 12.9, BUN 15, Creatinine 0.80, Estimated Creat Clear 190, Estimated GFR 101, Est GFR ( Amer) 122, Glucose 82, Calcium 9.1, Total Bilirubin 0.7, AST 40, ALT 36, Alkaline Phosphatase 102, Total Protein 7.2, Albumin 4.4, Globulin 2.8, Albumin/Globulin Ratio 1.6, Amylase 72, Lipase 81 Result diagrams: 09/25/21 17:04 09/25/21 17:04 Orders (Tests/Meds): ED MEDICATIONS Discontinued Medications Generic Name Dose Route Start Last Admin Trade Name Mary Kate PRN Reason Stop Dose Admin Sodium Chloride 1,000 mls @ 999 mls/hr 09/25/21 17:15 09/25/21 17:12 Sod Chlor 0.9% 1000ml Bag IV 09/25/21 18:15 999 mls/hr .Q1H1M SKINNY Administration Ketorolac Tromethamine 30 mg 09/25/21 17:11 09/25/21 17:12 Ketorolac 30mg/Ml Vial IV 09/25/21 17:12 30 mg ONCE ONE Administration Ketorolac Tromethamine 30 mg 09/25/21 19:14 Ketorolac 30mg/Ml Vial IV 09/25/21 19:15 ONCE ONE [facility] [place] - General Stated complaint: right kidney concerns Time Seen by Provider: 09/25/21 16:22 - History of Present Illness Provider Complaint: He states that for the past 2 days he has been having right flank pain. The pain is always there, but it gets worse in waves. Right now, his pain level is a 5/10. At its worst it has been a 8/10 at times. He has a history of kidney stones in his right kidney. Over the past 10 years he has had 3 other episodes similar to this that was caused by a kidney stones. He has had to have 1 stone extracted because he could not pass it. He denies any fever or chills, but he does have some nausea at times. - Related Data Home Medications Medication Instructions Recorded Confirmed naproxen 500 mg tablet 500 mg PO BID 12/24/19 01/21/20 Allergies Allergy/AdvReac Type Severity Reaction Status Date / Time levofloxacin [From Levaquin] Allergy Verified 02/11/20 10:17 adhesive AdvReac Unknown Verified 02/11/20 10:17 [facility] History - Hepatitis A Screen Attestation statement:: This patient has been screened for Hepatitis A risk factors. I have reviewed the patient's past medical history: Yes Medical History: Reports:: Anxiety, Gastroesophageal Reflux Disease(GERD) Denies:: Cancer, Diabetes Mellitus Type
[2021-09-25 16:22] VITALS: BP 146/92; PULSE 82; RESP 18; TEMP 36.7; O2SAT 97; BMI 36.9
[2021-09-25 16:38] LABS: Apearance,Urine Cloudy (Clear); Color,Urine Yellow (Yellow); Glucose,Urine (UA) Negative (Negative); Protein,Urine Trace (Negative); Specific Gravity, Urine 1.025 (1.005-1.030)
[2021-09-25 16:39] LABS: Bilirubin,Urine 1+ (Negative); Blood, Urine Negative (Negative); Ketones,Urine TRACE (Negative); UTC Leukocyte Esterase,Urine Negative (Negative); UTC Nitrate,Urine Negative (Negative); Urobilinogen,Urine 4 EU/dl (0.2)
[2021-09-25 17:55] LABS: Chloride 105 mmol/L (98-107); Potassium 3.9 mmoL/L (3.5-5.1); Sodium 143 mmol/L (136-145)
[2021-09-25 17:57] LABS: Amylase 72 U/L (30-110); Blood Urea Nitrogen 15 mg/dl (9-20); Creatinine Clearance Estimated 190 mL/min (50-200); Estimated Glomerular Filt Rate 101 ml/min (>60); GFR (African American) 122 ML/MIN (>60)
[2021-09-25 17:58] LABS: Alanine Aminotransferase 36 U/L (12-78); Albumin Level 4.4 g/dl (3.5-5.0); Albumin/Globulin Ratio 1.6 (1.1-1.8); Alkaline Phosphatase 102 U/L (38-126); Anion Gap 12.9 mEq/L (5-15); Aspartate Amino Transferase 40 U/L (17-59); Bilirubin,Total 0.7 mg/dl (0.2-1.3); Calcium 9.1 mg/dl (8.4-10.2); Carbon Dioxide 29 mmol/L (22.0-30.0); Globulin 2.8 g/dL (1.3-3.2); Glucose 82 mg/dl (74-100); Lipase 81 U/L (23-300); Total Protein,Serum 7.2 g/dl (6.3-8.2)
[2021-09-25 18:00] LABS: Basophils # 0.1 K/mm3 (0-0.2); Basophils % 0.9 % (0.1-2.0); Eosinophils # 0.2 K/mm3 (0.0-0.4); Eosinophils % 2.7 % (0.1-12.0); Hematocrit 47.7 % (42.0-52.0); Hemoglobin 16.2 g/dL (14.1-18.0); Lymphocytes # 2.2 K/mm3 (0.7-4.5); Lymphocytes % 30.9 % (10-50); Mean Corpuscular Hemoglobin 32.6 pg (27.0-31.2); Mean Corpuscular Volume 96.1 fl (80-94); Mean Platelet Volume 8.9 fl (7.4-10.4); Monocytes # 0.5 K/mm3 (0.1-1.0); Monocytes % 6.6 % (1.7-9.3); Neutrophils # 4.2 K/mm3 (1.8-7.8); Neutrophils % 58.9 % (37.0-80.0); Platelet Count 251 K/mm3 (142-424); Red Blood Count 4.96 M/mm3 (4.60-6.20); White Blood Count 7.1 K/mm3 (4.8-10.8)
--- NOTE | 2021-09-25 18:13 | CT_ITS ---
PROCEDURE INFORMATION: Exam: CT Abdomen And Pelvis Without Contrast Exam date and time: 09/25/2021 6:13 PM Age: 56 years old Clinical indication: Patient HX: Right sided flank pain , HX of stones; Additional info: Kidney stone R/O TECHNIQUE: Imaging protocol: Computed tomography of the abdomen and pelvis without contrast. Total images: 337 Radiation optimization: All CT scans at this facility use at least one of these dose optimization techniques: automated exposure control; mA and/or kV adjustment per patient size (includes targeted exams where dose is matched to clinical indication); or iterative reconstruction. COMPARISON: [facility] CT abdomen pelvis wo con 03/10/2019 12:10 PM FINDINGS: Lungs: Patchy scarring or atelectasis in the lung bases. Heart: Heart size normal. Mediastinal space: The visualized distal esophagus is largely contracted without gross abnormality. Liver: Normal contour. No mass lesions. No intrahepatic biliary ductal dilatation. Gallbladder and bile ducts: Normal. No calcified stones. No ductal dilation. Pancreas: Normal. No inflammatory changes or ductal dilation. Spleen: Splenomegaly measuring 14.2 cm. Adrenal glands: Normal. No adrenal mass. Kidneys and ureters: Mild bilateral symmetrical perinephric stranding, nonspecific. This is unchanged and may relate to chronic perirenal scarring. No hydronephrosis or hydroureter. No urinary tract stones are identified. There is a low-density circumscribed left renal cortical lesion suggesting renal cyst. No further imaging evaluation is required. Stomach and bowel: The stomach is largely contracted without gross abnormality. The small bowel is nondilated with no gross abnormality. There is a moderate amount of stool and gas distributed throughout the colon suggesting possible constipation. Appendix: The appendix is normal in caliber and demonstrates no evidence of appendicitis. Intraperitoneal space: No free fluid or air. Vasculature: Mild atherosclerotic aortoiliac calcification without aneurysm. Lymph nodes: No adenopathy. Urinary bladder: Unremarkable as visualized. Reproductive: Mildly enlarged prostate. Bones/joints: No acute osseous abnormalities. Mild-moderate lumbar degenerative changes. Soft tissues: Small fatty bilateral inguinal hernias with no asociated bowel herniation or strangulation. IMPRESSION: 1. No urolithiasis or hydronephrosis. Normal appendix. No evidence of bowel obstruction, perforation, or abscess. 2. There is a moderate amount of stool and gas distributed throughout the colon suggesting possible constipation. 3. Mild splenomegaly. 4. Mild bilateral symmetrical perinephric stranding, nonspecific. This is unchanged and may relate to chronic perirenal scarring. 5. Small fatty bilateral inguinal hernias with no asociated bowel herniation or strangulation. 6. Additional nonemergent findings detailed above. COMMENTS: Consistent with the [employer]'s Incidental Findings Committee white paper (J Am Easton Radiol 2018): Any incidental renal lesion less than 1 cm or classified as too small to characterize, or any incidental cystic renal lesion characterized as simple-appearing, is likely benign. No follow-up imaging is recommended for these lesions per consensus recommendations based on imaging criteria.
[2021-09-25 18:18] VITALS: BP 144/89; PULSE 80; RESP 18; TEMP 36.7; O2SAT 97; BMI 37.0
--- NOTE | 2021-09-25 18:54 | HMH.EDGENADL ---
ED Disposition Clinical Impression: Right flank pain Disposition: Home, Self-Care Condition on Discharge: Good Instructions: DI for Flank Pain Additional Instructions: Take ibuprofen or Tylenol for pain. Follow-up with your primary care doctor for further care, call for appointment. Referrals: Carlos Haider MD [Primary Care Provider] - - Critical Care Critical Care Time: No Attestation: On 09/25/21, the high probability of a clinically significant, sudden or life threatening deterioration of the following system(s) required my full and direct attention, intervention and personal management. The time I documented below is in addition to time spent performing reported procedures but includes the following listed in this critical care notation. Medical Decision Making - Galo Inquiry Pt receiving controlled substance: No Vital Signs: 09/25/21 16:22 09/25/21 18:18 Temperature 98.1 F 98.1 F Temperature Source Oral Oral Pulse Rate [Left Radial] 82 80 Respiratory Rate 18 18 Blood Pressure [Right Arm] 146/92 H 144/89 H Blood Pressure Mean [Right Arm] 110 107 02 Sat by Pulse Oximetry 97 97 Oxygen Delivery Method Room Air Room Air - Lab Data Lab Results 09/25/21 16:37: Urine Color Yellow, Urine Appearance Cloudy, Urine pH 7.0, Ur Specific [place] 1.025, Urine Protein Trace, Urine Glucose (UA) Negative, Urine Ketones Trace, Urine Blood Negative, Urine Nitrate Negative, Urine Bilirubin 1+ A, Urine Urobilinogen 4, Ur Leukocyte Esterase Negative 09/25/21 17:04: WBC 7.1, RBC 4.96, Hgb 16.2, Hct 47.7, MCV 96.1 H, MCH 32.6 H, MCHC 34.0, RDW 14.0, Plt Count 251, MPV 8.9, Neut % (Auto) 58.9, Lymph % (Auto) 30.9, [place] % (Auto) 6.6, Eos % (Auto) 2.7, Baso % (Auto) 0.9, Neut # (Auto) 4.2, Lymph # (Auto) 2.2, [place] # (Auto) 0.5, Eos # (Auto) 0.2, Baso # (Auto) 0.1 09/25/21 17:04: Sodium 143, Potassium 3.9, Chloride 105, Carbon Dioxide 29, Anion Gap 12.9, BUN 15, Creatinine 0.80, Estimated Creat Clear 190, Estimated GFR 101, Est GFR ( Amer) 122, Glucose 82, Calcium 9.1, Total Bilirubin 0.7, AST 40, ALT 36, Alkaline Phosphatase 102, Total Protein 7.2, Albumin 4.4, Globulin 2.8, Albumin/Globulin Ratio 1.6, Amylase 72, Lipase 81 Result diagrams: 09/25/21 17:04 09/25/21 17:04 Orders (Tests/Meds): ED MEDICATIONS Discontinued Medications Generic Name Dose Route Start Last Admin Trade Name Freq PRN Reason Stop Dose Admin Sodium Chloride 1,000 mls @ 999 mls/hr 09/25/21 17:15 09/25/21 17:12 Sod Chlor 0.9% 1000ml Bag IV 09/25/21 18:15 999 mls/hr .Q1H1M SKINNY Administration Ketorolac Tromethamine 30 mg 09/25/21 17:11 09/25/21 17:12 Ketorolac 30mg/Ml Vial IV 09/25/21 17:12 30 mg ONCE ONE Administration Ketorolac Tromethamine 30 mg 09/25/21 19:14 Ketorolac 30mg/Ml Vial IV 09/25/21 19:15 ONCE ONE - CT Data CT Scan: Abdomen, Pelvis Time Received: 19:[address] Reviewed: Yes: I have viewed the radiologist's interpretation Findings Narrative: PROCEDURE INFORMATION: Exam: CT Abdomen And Pelvis Without Contrast Exam date and time: 09/25/2021 6:13 PM Age: 56 years old Clinical indication: Patient HX: Right sided flank pain , HX of stones; Additional info: Kidney stone R/O TECHNIQUE: Imaging protocol: Computed tomography of the abdomen and pelvis without contrast. Total images: 337 Radiation optimization: All CT scans at this facility use at least one of these dose optimization techniques: automated exposure control; mA and/or kV adjustment per patient size (includes targeted exams where dose is matched to clinical indication); or iterative reconstruction. COMPARISON: [facility] CT abdomen pelvis wo con 03/10/2019 12:10 PM FINDINGS: Lungs: Patchy scarring or atelectasis in the lung bases. Heart: Heart size normal. Mediastinal space: The visualized distal esophagus is largely contracted without gross abnormality. Liver: Normal contour. No mass l
[2021-09-25 19:26] VITALS: BP 144/89; PULSE 82; RESP 16; TEMP 36.7
== END 2021-09-25 19:29 | disposition home or self-care (01) ==
LOC: UTC 16:43 → ER 18:09
PROVIDERS: Nurse Practitioner Family; Emergency Provider Emergency Medicine; PCP Family Medicine
DX: R10.11 Right upper quadrant pain (principal); M54.50 Low back pain, unspecified; K21.9 Gastro-esophageal reflux disease without esophagitis; F41.9 Anxiety disorder, unspecified
CPT/HCPCS: 74176; 80053; 81003; 82150; 83690; 85025; 99283

== ENCOUNTER 2022-04-27 00:49 | Emergency (ER) | payer BC, SELFPAY ==
[2022-04-27] VITALS (8 sets, daily range): BP systolic 115–146; BP diastolic 52–87; PULSE 70–82; RESP 18–19; TEMP 36.6–36.8; O2SAT 95–100; BMI 39.5
[2022-04-27 01:02] LABS: Microscopic, Urine URINE MICROSCOPIC (MICROSCOPIC)
[2022-04-27 01:04] LABS: Appearance,Urine SL CLOUDY (Clear); Blood, Urine 3+ (Negative); Color,Urine DK YELLOW (Yellow); Glucose,Urine (UA) Negative (Negative); Ketones,Urine Negative (Negative); Leukocyte Esterase,Urine Negative (Negative); Nitrate,Urine Negative (Negative); PH,Urine 5.5 (5.0-8.5); Protein,Urine 1+ (Negative); Specific Gravity, Urine >= 1.030 (1.005-1.030); Urobilinogen,Urine 0.2 EU/dl (0.2)
--- NOTE | 2022-04-27 01:04 | CT_ITS ---
PROCEDURE INFORMATION: Exam: CT Abdomen And Pelvis Without Contrast Exam date and time: 04/27/2022 1:14 AM Age: 57 years old Clinical indication: Abdominal pain; Flank; Prior surgery; Surgery type: Lithotripsy; Patient HX: HX right kidney stones; Additional info: Rule out kidney stone TECHNIQUE: Imaging protocol: Computed tomography of the abdomen and pelvis without contrast. Radiation optimization: All CT scans at this facility use at least one of these dose optimization techniques: automated exposure control; mA and/or kV adjustment per patient size (includes targeted exams where dose is matched to clinical indication); or iterative reconstruction. COMPARISON: CT ABDOMEN PELVIS WO CON 09/25/2021 6:24 PM FINDINGS: Liver: Normal. Gallbladder and bile ducts: Normal Pancreas: Normal. Spleen: Normal. Adrenal glands: Normal. No mass. Kidneys and ureters: Simple left renal cyst, for which no further evaluation necessary. Mild right hydroureteronephrosis, with obstructive 2 mm calculus within the urinary bladder, near the right UVJ (series 3, image 108). Stomach and bowel: Normal. Appendix: Appendix normal. Intraperitoneal space: Unremarkable. No free air. No significant fluid collection. Vasculature: Phleboliths within the pelvis. Lymph nodes: Unremarkable. No enlarged lymph nodes. Urinary bladder: Unremarkable as visualized. Reproductive: Unremarkable as visualized. Bones/joints: Multilevel thoracolumbar spine degenerative disc space narrowing and osteophyte formation, with mild dextroscoliosis of the lumbar spine. Soft tissues: Small bilateral fat containing inguinal hernias, without acute complications. IMPRESSION: Mild right hydroureteronephrosis, with obstructive 2 mm calculus within the urinary bladder, near the right UVJ (series 3, image 108).
[2022-04-27 01:10] LABS: Basophils # 0.2 K/mm3 (0-0.2); Basophils % 2.1 % (0.1-2.0); Eosinophils # 0.2 K/mm3 (0.0-0.4); Eosinophils % 2.2 % (0.1-12.0); Hematocrit 52.8 % (42.0-52.0); Hemoglobin 17.5 g/dL (14.1-18.0); Lymphocytes # 1.8 K/mm3 (0.7-4.5); Lymphocytes % 20.2 % (10-50); Mean Corpuscular HGB Conc 33.2 g/dL (31.8-35.4); Mean Corpuscular Hemoglobin 33.2 pg (27.0-31.2); Mean Platelet Volume 8.9 fl (7.4-10.4); Monocytes # 0.6 K/mm3 (0.1-1.0); Monocytes % 6.1 % (1.7-9.3); Neutrophils # 6.2 K/mm3 (1.8-7.8); Neutrophils % 69.4 % (37.0-80.0); Platelet Count 206 K/mm3 (142-424); Red Blood Count 5.28 M/mm3 (4.60-6.20); Red Cell Distribution Width 14.5 % (11.5-17.5); White Blood Count 8.9 K/mm3 (4.8-10.8)
[2022-04-27 01:18] LABS: Bacteria,Urine Trace /lpf; Bilirubin,Urine Negative (Negative); RBC,Urine TNTC #/hpf (0-3); WBC,Urine Occasional #/hpf (0-3)
[2022-04-27 01:19] LABS: Alanine Aminotransferase 46 U/L (12-78); Albumin Level 4.2 g/dl (3.5-5.0); Albumin/Globulin Ratio 1.6 (1.1-1.8); Alkaline Phosphatase 107 U/L (38-126); Anion Gap 11.2 mEq/L (5-15); Aspartate Amino Transferase 42 U/L (17-59); Bilirubin,Total 0.4 mg/dl (0.2-1.3); Blood Urea Nitrogen 19 mg/dl (9-20); Calcium 9.1 mg/dl (8.4-10.2); Carbon Dioxide 28 mmol/L (22.0-30.0); Chloride 106 mmol/L (98-107); Creatinine Clearance Estimated 178 mL/min (50-200); Estimated Glomerular Filt Rate 88 ml/min (>60); GFR (African American) 106 ML/MIN (>60); Globulin 2.7 g/dL (1.3-3.2); Glucose 147 mg/dl (74-100); Potassium 4.2 mmoL/L (3.5-5.1); Sodium 141 mmol/L (136-145); Total Protein,Serum 6.9 g/dl (6.3-8.2)
[2022-04-27 01:24] LABS: C-Reactive Protein 1.9 mg/L (0-4)
[2022-04-27 01:39] LABS: Erythrocyte Sedimentation Rate 3 mm/hr (0-20)
--- NOTE | 2022-04-27 01:46 | HMH.EDNVD ---
ED Disposition Clinical Impression: Renal colic on right side Disposition: Home, Self-Care Condition on Discharge: Good Instructions: DI for Kidney Stones Additional Instructions: fluids and see pcp or urology for follow up Prescriptions: Tamsulosin HCl [Flomax 0.4mg capsule] 0.4 mg PO HS #10 cap Transmission Status: Pending to [facility] #[id number] Referrals: Capri Chang APRN [Primary Care Provider] - - Critical Care Critical Care Time: No Attestation: On 04/27/22, the high probability of a clinically significant, sudden or life threatening deterioration of the following system(s) required my full and direct attention, intervention and personal management. The time I documented below is in addition to time spent performing reported procedures but includes the following listed in this critical care notation. Medical Decision Making - Medical Records Medical records reviewed: Yes: I reviewed the patient's medical records. - Galo Inquiry Pt receiving controlled substance: No Vital Signs: 04/27/22 00:49 04/27/22 01:01 04/27/22 01:30 Temperature 97.8 F Temperature Source Oral Pulse Rate 79 82 Pulse Rate [Left Radial] 70 Respiratory Rate 18 Blood Pressure 146/52 H 139/83 Blood Pressure [Right Arm] 146/52 H Blood Pressure Mean 83 Blood Pressure Mean [Right Arm] 83 02 Sat by Pulse Oximetry 97 100 95 Oxygen Delivery Method Room Air Room Air Room Air 04/27/22 02:00 04/27/22 02:30 04/27/22 03:49 Temperature 98.3 F Temperature Source Oral Pulse Rate 80 80 82 Pulse Rate [Left Radial] Respiratory Rate 19 Blood Pressure 115/64 125/87 116/66 Blood Pressure [Right Arm] Blood Pressure Mean Blood Pressure Mean [Right Arm] 02 Sat by Pulse Oximetry 96 95 Oxygen Delivery Method Room Air Room Air Room Air - Lab Data Lab results reviewed: Yes: I reviewed the patient's lab results. Lab Results 04/27/22 00:55: Urine Color Dk yellow, Urine Appearance Sl cloudy, Urine pH 5.5, Ur Specific [place] >= 1.030, Urine Protein 1+, Urine Glucose (UA) Negative, Urine Ketones Negative, Urine Blood 3+, Urine Nitrate Negative, Urine Bilirubin Negative, Urine Urobilinogen 0.2, Ur Leukocyte Esterase Negative, Urine RBC Tntc, Urine WBC Occasional, Urine Bacteria Trace 04/27/22 01:06: WBC 8.9, RBC 5.28, Hgb 17.5, Hct 52.8 H, MCV 100.0 H, MCH 33.2 H, MCHC 33.2, RDW 14.5, Plt Count 206, MPV 8.9, Neut % (Auto) 69.4, Lymph % (Auto) 20.2, [place] % (Auto) 6.1, Eos % (Auto) 2.2, Baso % (Auto) 2.1 H, Neut # (Auto) 6.2, Lymph # (Auto) 1.8, [place] # (Auto) 0.6, Eos # (Auto) 0.2, Baso # (Auto) 0.2, ESR 3 04/27/22 01:06: Sodium 141, Potassium 4.2, Chloride 106, Carbon Dioxide 28, Anion Gap 11.2, BUN 19, Creatinine 0.90, Estimated Creat Clear 178, Estimated GFR 88, Est GFR ( Amer) 106, Glucose 147 H, Calcium 9.1, Total Bilirubin 0.4, AST 42, ALT 46, Alkaline Phosphatase 107, C-Reactive Protein 1.9, Total Protein 6.9, Albumin 4.2, Globulin 2.7, Albumin/Globulin Ratio 1.6 Result diagrams: 04/27/22 01:06 04/27/22 01:06 Orders (Tests/Meds): ED MEDICATIONS Generic Name Dose Route Start Last Admin Trade Name Freq PRN Reason Stop Dose Admin Sodium Chloride 1,000 mls @ 999 mls/hr 04/27/22 01:15 04/27/22 01:08 Sod Chlor 0.9% 1000ml Bag IV 04/27/22 02:15 999 mls/hr .Q1H1M SKINNY Administration Sodium Chloride 1,000 mls @ 999 mls/hr 04/27/22 03:00 04/27/22 03:01 Sod Chlor 0.9% 1000ml Bag IV 04/27/22 04:00 999 mls/hr .Q1H1M SKINNY Administration Discontinued Medications Generic Name Dose Route Start Last Admin Trade Name Freq PRN Reason Stop Dose Admin Acetaminophen/Codeine Phosphate 1 packet 04/27/22 03:53 Acetaminophen 300mg W/Codeine 30mg Take Home Pack (6) PO 04/27/22 03:54 ONCE ONE Hydromorphone HCl 1 mg 04/27/22 01:58 04/27/22 02:01 Hydromorphone 2mg/Ml Syringe IV 04/27/22 01:59 1 mg ONCE ONE Administration Ketorolac Tromethamine 30 mg
== END 2022-04-27 04:13 | disposition home or self-care (01) ==
PROVIDERS: Emergency Provider Emergency Medicine; PCP Nurse Practitioner Family
DX: N23 Unspecified renal colic (principal); R11.0 Nausea; Z87.442 Personal history of urinary calculi; K21.9 Gastro-esophageal reflux disease without esophagitis; F41.9 Anxiety disorder, unspecified
CPT/HCPCS: 74176; 80053; 81001; 85025; 85651; 86140; 96361; 96374; 96375; 99284; J2405

== ENCOUNTER 2022-11-19 03:41 | Emergency (ER) | payer BC, SELFPAY ==
[2022-11-19 03:49] VITALS: BP 154/95; PULSE 101; RESP 19; TEMP 36.8; O2SAT 98; BMI 35.9
--- NOTE | 2022-11-19 03:55 | CT_ITS ---
PROCEDURE INFORMATION: Exam: CT Abdomen And Pelvis Without Contrast Exam date and time: 11/19/2022 4:10 AM Age: 57 years old Clinical indication: Abdominal pain; Localized; Prior surgery; Patient HX: PT C/O right flank pain approx 3 hours. HX of right sided kidney stones. ; Additional info: Right side flank pain TECHNIQUE: Imaging protocol: Computed tomography of the abdomen and pelvis without contrast. Radiation optimization: All CT scans at this facility use at least one of these dose optimization techniques: automated exposure control; mA and/or kV adjustment per patient size (includes targeted exams where dose is matched to clinical indication); or iterative reconstruction. COMPARISON: CT ABDOMEN PELVIS WO CON 04/27/2022 1:14 AM FINDINGS: Liver: Normal. No mass. Gallbladder and bile ducts: Normal. No calcified stones. No ductal dilation. Pancreas: Normal. No ductal dilation. Spleen: Normal. No splenomegaly. Adrenal glands: Normal. No mass. Kidneys and ureters: There is a 3 mm stone in the mid right ureter with mild to moderate right-sided hydronephrosis and hydroureter. Some perinephric standing is also noted on the right. No left-sided stones are present. Stomach and bowel: Unremarkable. No obstruction. No mucosal thickening. Appendix: No evidence of appendicitis. Intraperitoneal space: Unremarkable. No free air. No significant fluid collection. Vasculature: Unremarkable. No abdominal aortic aneurysm. Lymph nodes: Unremarkable. No enlarged lymph nodes. Urinary bladder: Unremarkable as visualized. Reproductive: Unremarkable as visualized. Bones/joints: Unremarkable. No acute fracture. Soft tissues: Unremarkable. IMPRESSION: 3 mm mid right ureteral stone with mild to moderate right-sided hydronephrosis and hydroureter.
--- NOTE | 2022-11-19 04:03 | PC.NURSE ---
Patient to ct at this time
[2022-11-19 04:11] LABS: Basophils # 0.2 K/mm3 (0-0.2); Basophils % 1.5 % (0.1-2.0); Eosinophils # 0.2 K/mm3 (0.0-0.4); Eosinophils % 1.7 % (0.1-12.0); Hematocrit 53.3 % (42.0-52.0); Hemoglobin 16.8 g/dL (14.1-18.0); Lymphocytes # 2.1 K/mm3 (0.7-4.5); Lymphocytes % 19.6 % (10-50); Mean Corpuscular HGB Conc 31.6 g/dL (31.8-35.4); Mean Corpuscular Hemoglobin 31.7 pg (27.0-31.2); Mean Corpuscular Volume 100.5 fl (80-94); Mean Platelet Volume 8.4 fl (7.4-10.4); Monocytes # 0.6 K/mm3 (0.1-1.0); Monocytes % 5.5 % (1.7-9.3); Neutrophils # 7.7 K/mm3 (1.8-7.8); Neutrophils % 71.7 % (37.0-80.0); Platelet Count 259 K/mm3 (142-424); Red Cell Distribution Width 14.5 % (11.5-17.5); White Blood Count 10.8 K/mm3 (4.8-10.8)
[2022-11-19 04:16] LABS: Alanine Aminotransferase 49 U/L (12-78); Albumin Level 4.6 g/dl (3.5-5.0); Albumin/Globulin Ratio 1.5 (1.1-1.8); Alkaline Phosphatase 108 U/L (38-126); Amylase 85 U/L (30-110); Anion Gap 14.1 mEq/L (5-15); Aspartate Amino Transferase 37 U/L (17-59); Bilirubin,Total 0.6 mg/dl (0.2-1.3); Blood Urea Nitrogen 16 mg/dl (9-20); Carbon Dioxide 28 mmol/L (22.0-30.0); Chloride 105 mmol/L (98-107); Creatinine Clearance Estimated 150 mL/min (50-200); Estimated Glomerular Filt Rate 78 ml/min (>60); GFR (African American) 94 ML/MIN (>60); Globulin 3.1 g/dL (1.3-3.2); Glucose 133 mg/dl (74-100); Lipase 130 U/L (23-300); Potassium 4.1 mmoL/L (3.5-5.1); Sodium 143 mmol/L (136-145); Total Protein,Serum 7.7 g/dl (6.3-8.2)
--- NOTE | 2022-11-19 04:19 | PC.NURSE ---
Patient transported back to room via wc accompanied by avionics electronics technician.
--- NOTE | 2022-11-19 04:19 | HMH.EDABDPAI ---
Discharge Plan Disposition Patient Disposition: Home, Self-Care Prescriptions Prescriptions: No Action naproxen 500 mg tablet 500 mg PO BID tamsulosin 0.4 MG capsule 0.4 mg PO HS Qty: 10 0RF Referrals Follow up/Referrals: Klaudia Saldaña APRN [Primary Care Provider] - See instructions Clinical Impressions Clinical Impression: Renal colic on right side Instructions Patient Instructions: DI for Kidney Stones Discharge ED Provider: Remington Barajas Abdominal Pain HPI General Chief Complaint: Abdominal Pain Stated Complaint: Abdominal pain, vomiting Time Seen by Provider: 11/19/22 04:00 Mode of Arrival: Family Vehicle Source of Information: Patient and Medical Record Limitations: No Limitations Description of Symptoms (Recalled from ER Triage Doc. by RN): 57 yo male presents with acute onset of right flank pain that began at approx 1am. Pt has a history of renal calculi and has seen a urologist at [facility] in the past. Patient is alert, oriented, verbal, rates pain 10/10. Denies any dysuria. Last voided within the last 1 hour without difficulty. History of Present Illness HPI narrative: acute onset of rt flank pain with hx of kidney stones complaint: flank pain Onset (ago): hour(s) Consistency: colicky Location: R flank Severity: moderate Quality: sharp Associated symptoms: nausea and vomiting Related Data Home Medications Medication Instructions Recorded Confirmed naproxen 500 mg tablet 500 mg PO BID Pain 12/24/19 04/27/22 Previous Rx's Medication Instructions Recorded tamsulosin 0.4 mg capsule 0.4 mg PO HS #10 caps 04/27/22 Allergies Allergy/AdvReac Type Severity Reaction Status Date / Time levofloxacin [From Levaquin] Allergy Verified 11/19/22 04:23 adhesive AdvReac Unknown Verified 11/19/22 04:23 [facility] Disclaimer: The information contained in this section may have been updated after the patient was seen, as this information can be updated by other users. Social History Smoking Status: Unknown if ever smoked alcohol intake: current substance use type: unknown current occupational status: retired Travel in the last 8 weeks: None household members: spouse housing: house caffeine: Yes ROS Obtained: Yes All systems reviewed & no additional complaints except as documented Physical Exam General General appearance: alert Head Head exam: normocephalic Eye Eye exam: Present PERRL and EOMI ENT ENT exam: Present mucous membranes moist Neck Neck exam: Present trachea midline Respiratory Respiratory exam: Absent respiratory distress Cardiovascular Cardiovascular exam: Present regular rate Abdominal Exam Abdominal exam: Present soft Back Exam Back exam: Absent CVA tenderness (R) Neurological Exam Neurological exam: Present alert, oriented X3 and CN II-XII intact Skin Skin exam: Absent rash Medical Decision Making Medical Records Medical records reviewed: Yes I reviewed the patient's medical records. Galo Inquiry Pt receiving controlled substance: No Vital Signs: 11/19/22 03:49 Temperature 98.2 F Temperature Source Oral Pulse Rate [Right Brachial] 101 H Respiratory Rate 19 Blood Pressure [Right Arm] 154/95 H Blood Pressure Mean [Right Arm] 114 Blood Pressure Source [Right Arm] Automatic Cuff Blood Pressure Position [Right Arm] Sitting 02 Sat by Pulse Oximetry 98 Oxygen Delivery Method Room Air Lab Data Lab results reviewed: Yes I reviewed the patient's lab results. Lab Results 11/19/22 03:57: WBC 10.8, RBC 5.30, Hgb 16.8, Hct 53.3 H, MCV 100.5 H, MCH 31.7 H, MCHC 31.6 L, RDW 14.5, Plt Count 259, MPV 8.4, Neut % (Auto) 71.7, Lymph % (Auto) 19.6, [place] % (Auto) 5.5, Eos % (Auto) 1.7, Baso % (Auto) 1.5, Neut # (Auto) 7.7, Lymph # (Auto) 2.1, [place] # (Auto) 0.6, Eos # (Auto) 0.2, Baso # (Auto) 0.2 11/19/22 03:57: Sodium 143, Potassium 4.1, Chloride 105, Carbon Dioxide 28, Anion Gap 14.1, BUN 16, Creatinine 1.00, E
[2022-11-19 04:35] LABS: Procalcitonin 0.133 ng/mL (0.0-2.0)
[2022-11-19 04:44] LABS: Erythrocyte Sedimentation Rate 14 mm/hr (0-20)
--- NOTE | 2022-11-19 04:49 | PC.NURSE ---
PATIENT REPORTS MODERATE PAIN RELIEF. I CAN STILL FEEL IT BUT ITS GREATLY IMPROVED
[2022-11-19 05:30] VITALS: BP 149/90; PULSE 90; RESP 18; TEMP 36.8; O2SAT 98
== END 2022-11-19 05:38 | disposition home or self-care (01) ==
PROVIDERS: Emergency Provider Emergency Medicine; PCP Nurse Practitioner Family
DX: N23 Unspecified renal colic (principal)
CPT/HCPCS: 74176; 80053; 82150; 83690; 84145; 85025; 85651; 86140; 96361; 96374; 96375; 99285; J0131; J2405

== ENCOUNTER 2025-07-15 09:13 | Outpatient (CLI) | payer BC, SELFPAY ==
--- NOTE | 2025-07-15 09:17 | XR_ITS ---
FINAL REPORT CLINICAL HISTORY: PAIN RT SHOULDER COMPARISON: None FINDINGS: 3 views of the right shoulder were obtained. There is no fracture or dislocation. Mild degenerative joint disease is present. Soft tissues are unremarkable. IMPRESSION: Mild degenerative joint disease, with no acute osseous abnormality of the right shoulder. Reviewed, Interpreted and Dictated by Penny Ventura MD Transcribed by Christina Suarez Authenticated and [facility]
--- OUTSIDE RECORDS SUMMARY | 2025-07-15 09:24 | XMS_ITS | Clinical Summary ---
Author Organization [facility] Address [address] [place] [address] Phone Care Team Providers Care Trouble Lineman Name Role Phone Unavailable Primary Care Provider Unavailabl e Encounters Date Type Department Care Team Description 07/11/2025 Telephone [facility] [address] [place] [phone] Seema Michael Schedule Appointment (Cancer) 07/04/2025 Telephone [facility] [address] [place] [phone] Kaylee Mendoza, Clerical Staff Schedule Appointment (Cancer) from Last 3 Months Social History Tobacco Use Types Packs/Day Years Used Date Smoking Tobacco: Never Assessed Sex and Gender Information Value Date Recorded Sex Assigned at Not on file Legal Sex Male 8:24 AM EDT Gender Identity Not on file Sexual Orientation Not on file Plan of Treatment Upcoming Encounters Date Type Department Care Team (Late st Contact Info) Description 08/26/2025 1:00 PM EDT Appointment [facility] [address] [place] [phone] Ishan Bravo, [facility] [phone] 08/26/2025 1:45 PM EDT Appointment [facility] [address] [place] [phone] Lexie Escobar MA Health Maintenance Due Date Last Done Comments Annual Wellness Exam 1970 DTaP/TDaP/Td (1 - Tdap) 1986 Hepatitis B Vaccine (1 of 3 - 19+ 3-dose series) 1986 Cologuard 2012 Colon Cancer Screening 2012 Colonoscopy 2012 FIT 2012 Sigmoidoscopy 2012 Virtual Colonography 2012 Pneumococcal Vaccine 50+ (1 of 1 - PCV) 2017 Zoster (1 of 2) 2017 COVID-19 Vaccine ( - 2023-2 5 season) 2025 Influenza Vaccine (#1) 2025 Meningococcal B Vaccine Aged Out No l onger eligible based on patient's age to complete this topic
--- OUTSIDE RECORDS SUMMARY | 2025-07-15 09:25 | XMS_ITS | Clinical Summary ---
Author Organization Healthcare Address [facility] [place] [address] Care Team Providers Care Wastewater Engineer Name Role Phone Pcp, No Primary Care Provider Unavailabl e Allergies Active Allergy Reactions Criticality Noted Date Comments Levofloxacin Swelling High 11/22/2022 Medications No known medications Active Problems No known active problems Social History Tobacco Use Types Packs/Day Years Used Date Smoking Tobacco: Never Assessed Sex and Gender Information Value Date Recorded Sex Assigned at Not on file Legal Sex Male 5:55 PM EDT Gender Identity Not on file Sexual Orientation Not on file Last Filed Vital Signs Vital Sign Reading Time Taken Comments Blood Pressure 148/96 11/22/2022 11:32 PM EST Pulse 88 11/22/2022 11:32 PM EST Temperature 36.9 C (98.5 F) 11/22/2022 11:32 PM EST Respiratory Rate 18 11/22/2022 11:32 PM EST Oxygen Saturation 96% 11/22/2022 7:51 PM EST Inhaled Oxygen Concentration - - Weight 133 kg (292 lb 8.8 oz) 11/22/2022 7:51 PM EST Height - - Body Mass Index - - Plan of Treatment Not on file Insurance ANTHEM Care Teams Wastewater Engineer Relationship Specialty Start [place] [address] PCP - General Family Medicine 11/22/22
--- OUTSIDE RECORDS SUMMARY | 2025-07-15 09:25 | XMS_ITS | Clinical Summary ---
Author Organization [facility] Address [address] [place] [address] Care Team Providers Care Tank Washer Name Role Phone Carlos Haider MD Primary Care Provider + Allergies No known active allergies Medications cyclobenzaprine (FLEXERIL) 10 MG tablet Take 110 mg by mouth 3 (Three) Times a Day As Needed for Muscle Spasms. Active HYDROcodone-ibu profen (VICOPROFEN) 7.5-200 MG per tablet Take 1 tablet by mouth Every 8 (Eight) Hours As Needed for Moderate Pain (4-6). Active naproxen sodium (ANAPROX) 550 MG tablet Take 1 tablet by mouth 2 (Two) Times a Day With Meals. 60 tablet 1 02/21/2017 Active Active Problems Problem Noted Date Diagnosed Date DDD (degenerative disc disease), lumbar 02/22/20 Back pain 02/21/2017 Neck pain 02/21/2017 Radiculopathy due to lumbar intervertebral disc disorder 02/21/2017 Cervical spondylosis without myelopathy 02/22/20 17 Family History Medical History Relation Name Comments No Known Problems Father No Known Problems Mother Relation Name Status Comments Father Mother Social History Tobacco Use Types Packs/Day Years Used Date Smoking Tobacco: Every Day Alcohol Use Standard Drinks/Week Comments Yes 0 (1 standard drink = 0.6 oz pur e alcohol) Abuse Screen Answer Date Recorded Unsafe at Home or Work/School Not on file Feels Threatened by Someone? Not on file 09/2023 Does Anyone Keep You from Co ntacting Others or Doint Things Outside the Home? Not on file 08/17/2023 Physical Sign of Abuse Present Not on file 1 Housing Stability Answer Date Recorded Current Living Arrangements Not on file 08/07 Potentially Unsafe Housing Conditions Not on miguel e 08/17/2023 Family and Community Support Answer Darin e Recorded Help with Day-to-Day Activities Not on file 08/17/2023 Lonely or Isolated Not on file 08/17/2023 Employment Answer Date Recorded Do you want help finding or keeping work or a debra b? Not on file 08/17/2023 Disabilities Answer Date Recorded Concentrating, Remembering, or Making Decisions Difficulty Not on file 08/17/2023 Doing Errands Independently Difficulty Not on fi le 08/17/2023 Education Answer Date Recorded Help with school or training? Not on file Preferred Language Not on file 08/17/2023 Sex and Gender Information Value Date Recorded Sex Assigned at Not on file Legal Sex Male 11:47 AM EDT Gender Identity Not on file Sexual Orientation Not on file Last Filed Vital Signs Vital Sign Reading Time Taken Comments Blood Pressure 130/88 02/24/2017 12:02 PM EDT Pulse - - Temperature 36.9 C (98.5 F) 02/24/2017 12:02 PM EDT Respiratory Rate - - Oxygen Saturation - - Inhaled Oxygen Concentration - - Weight 123 kg (271 lb) 02/24/2017 12:02 PM EDT Height 185.4 cm (6' 1 ) 02/24/2017 12:02 PM EDT Body Mass Index 35.75 02/24/2017 12:02 PM EDT Plan of Treatment Health Maintenance Due Date Last Done Comments TDAP/TD VACCINES (1 - Tdap) 1986 COLOGUARD 2012 COLON CANCER SCREENING 5 YEAR SIGMOIDOSCOPY 2012 COLONOSCOPY [address] CANCER SCREENING 2012 CT COLONOGRAPHY 2012 FECAL OCCULT BLOOD TEST 2012 FIT Testing (1 year) 2012 ANNUAL PHYSICAL 02/21/2017 HEPATITIS C SCREENING 02/21/2017 Pneumococcal Vaccine 50+ (1 of 1 - PCV) 2017 ZOSTER VACCINE (1 of 2) 2017 COVID-19 Vaccine (1 - season) 2025 INFLUENZA VACCINE 08/07/2025 Insurance Care Teams Tank Washer Relationship Specialty Start Date End Date Carlos Haider MD PCP - General Family Medicine 02/07/17
--- OUTSIDE RECORDS SUMMARY | 2025-07-15 09:25 | XMS_ITS | Encounter Summary ---
Author Organization [facility] [address] Care Team Providers Care Geology Faculty Member Name Role Phone Unavailable Primary Care Provider Unavailabl e Reason for Visit * Reason Onset Date Comments Schedule Appointment 07/11/2025 Cancer Encounter Details Date Type Department Care Team (Late Contact Info) Description 07/11/2025 Telephone [facility] [address] [place] [phone] Seema Michael Schedule Appointment (Cancer) Social History Tobacco Use Types Packs/Day Years Used Date Smoking Tobacco: Never Assessed Sex and Gender Information Value Date Recorded Sex Assigned at Not on file Legal Sex Male 8:24 AM EDT Gender Identity Not on file Sexual Orientation Not on file documented as of this encounter Miscellaneous Notes * Telephone Encounter - Seema Michael - 07/11/2025 1:19 PM EDTSummary: Schedule Genetic Consult I attempted to contact Vic Benson to schedule genetic testing. A voicemail was left asking him to return my call. documented in this encounter Plan of Treatment Upcoming Encounters Date Type Department Care Team (Late st Contact Info) Description 08/26/2025 1:00 PM EDT Appointment [facility] [address] [place] [phone] [place] [address] 08/26/2025 1:45 PM EDT Appointment [facility] [address] [place] [phone] Lexie Escobar MA documented as of this encounter Visit Diagnoses Not on filedocumented in this encounter
--- OUTSIDE RECORDS SUMMARY | 2025-07-15 09:25 | XMS_ITS | Encounter Summary ---
Author Organization [facility] [place] [address] Care Team Providers Care Recording Clerk Name Role Phone Unavailable Primary Care Provider Unavailabl e Reason for Visit * Reason Onset Date Comments Schedule Appointment 07/04/2025 Cancer Encounter Details Date Type Department Care Team (Late st Contact Info) Description 07/04/2025 Telephone [facility] [facility] [address] [place] [phone] Kaylee Mendoza, Clerical Staff Schedule Appointment (Cancer) Social History Tobacco Use Types Packs/Day Years Used Date Smoking Tobacco: Never Assessed Sex and Gender Information Value Date Recorded Sex Assigned at Not on file Legal Sex Male 8:24 AM EDT Gender Identity Not on file Sexual Orientation Not on file documented as of this encounter Miscellaneous Notes * Telephone Encounter - Kaylee Mendoza, Clerical Staff - 07/04/2025 11:47 AM EDT I attempted to call patient to schedule a genetic consult, however, I was unable to leave a voicemail. Kaylee Mendoza Genetic Navigator documented in this encounter Plan of Treatment Upcoming Encounters Date Type Department Care Team (Late st Contact Info) Description 08/26/2025 1:00 PM EDT Appointment [facility] [address] [place] [address] Ishan Bravo [place] [id number] 08/26/2025 1:45 PM EDT Appointment [facility] [address] [place] [phone] Lexie Escobar MA documented as of this encounter Visit Diagnoses Not on filedocumented in this encounter
== END 2025-07-15 23:59 | disposition home or self-care (01) ==
LOC: RAD 09:14
PROVIDERS: PCP Nurse Practitioner Family; Visit Provider Nurse Practitioner Family
DX: M19.011 Primary osteoarthritis, right shoulder (principal)
CPT/HCPCS: 73030

== ENCOUNTER 2025-08-05 13:32 | Outpatient (CLI) | payer BC, SELFPAY ==
--- OUTSIDE RECORDS SUMMARY | 2025-08-05 13:35 | XMS_ITS | Clinical Summary ---
Author Organization [facility] Address [facility] [place] [address] Phone Care Team Providers Care Resaw Machine Operator Name Role Phone Unavailable Primary Care Provider Unavailabl e Encounters Date Type Department Care Team Description 07/11/2025 Telephone ED[email or web address] [address] [place] [phone] Seema Michael Schedule Appointment (Cancer) 07/04/2025 Telephone [email or web address] [address] [place] [address] Kaylee Mendoza, Clerical Staff Schedule Appointment [...] Description 08/26/2025 1:00 PM EDT Appointment [facility] [address] [place] [address] Ishan Bravo, [facility] [place] [id number] 08/26/2025 1:45 PM EDT Appointment [facility] [address] [place] [phone] Lexie Escobar MA Health Maintenance Due [...]
--- OUTSIDE RECORDS SUMMARY | 2025-08-05 13:35 | XMS_ITS | Clinical Summary ---
Author Organization [facility] Address [address] [place] [address] Care Team Providers Care Loom Starter Name Role Phone Carlos Haider MD Primary [...] 2017 ZOSTER VACCINE (1 of 2) 2017 INFLUENZA VACCINE 06/07/2025 Insurance Care Teams Loom Starter Relationship Specialty Start Date End Date Carlos Haider MD PCP - General Family Medicine 02/07/17
--- OUTSIDE RECORDS SUMMARY | 2025-08-05 13:35 | XMS_ITS | Encounter Summary ---
Author Organization [facility] [place] [address] Care Team Providers Care Popcorn Vendor Name Role Phone Unavailable Primary Care Provider Unavailabl e Reason for Visit * Reason Onset Date Comments Schedule Appointment 07/11/2025 Cancer Encounter Details Date Type Department Care Team (Late Contact Info) Description 07/11/2025 Telephone [facility] [address] [place] [phone] Seema Michael Schedule Appointment (Cancer) Social [...] Description 08/26/2025 1:00 PM EDT Appointment [facility] [address] [place] [phone] [place] [address] 08/26/2025 1:45 PM EDT Appointment [facility] [address] [place] [phone] Lexie Escobar MA documented as of this encounter Visit Diagnoses Not on filedocumented in this encounter
--- OUTSIDE RECORDS SUMMARY | 2025-08-05 13:35 | XMS_ITS | Encounter Summary ---
Author Organization [facility] [place] [address] Care Team Providers Care Block Captain Name Role Phone Unavailable Primary Care Provider Unavailabl e Reason for Visit * Reason Onset Date Comments Schedule Appointment 07/04/2025 Cancer Encounter Details Date Type Department Care Team (Late st Contact Info) Description 07/04/2025 Telephone [facility] [address] [place] [address] Kaylee Mendoza, Clerical Staff Schedule Appointment [...] Description 08/26/2025 1:00 PM EDT Appointment [facility] [address] [place] [address] Ishan Bravo [place] [id number] 08/26/2025 1:45 PM EDT Appointment [facility] [address] [place] [phone] Lexie Escobar MA documented as of this encounter Visit Diagnoses Not on filedocumented in this encounter
--- OUTSIDE RECORDS SUMMARY | 2025-08-05 13:35 | XMS_ITS | Clinical Summary ---
Author Organization Healthcare Address [facility] [place] [address] Care Team Providers Care Bearing Press Machine Operator Name Role Phone Pcp, No Primary Care [...] Not on file Insurance ANTHEM Care Teams Bearing Press Machine Operator Relationship Specialty Start [place] [address] PCP - General Family Medicine 11/22/22
--- NOTE | 2025-08-05 14:00 | CA_ITS ---
APPROVED REPORT EXAM: Comprehensive 2D, Doppler, and color-flow Echocardiogram Product Safety Head: Mckenzie Taylor RT(R) Ht: 6 ft 1 in Wt: 293lbs BSA: 2.53 BP: 152/90 mmHg Indications: shortness of breath, diabetes 2D Dimensions Aortic Root 2.20 cm M: 3.1 - 3.7 LVEF (Alvarado's) 38.50 % M: 52 - 72 Left Atrium 4.80 cm M: 3.0 - 4.0 LV Volume 124.40 mL M: 62 - 150 LV Volume Index 49.2 mL/m2 M: 34 - 74 LA Volume 36.50 mL LA Volume Index 14.43 mL/m2 (M/F) 16-34 EF AP4 46.20 % EF AP2 29.3 % EF BP 38.5 % GL Strain -14.7 % M-Mode Dimensions RVDd 3.08 cm (0.9-2.6) LVDd 4.95 cm (3.5-5.7) Ao Diam 3.39 cm (2.0-3.7) LVDs 3.32 cm (3.5-5.7) IVSd 0.98 cm (0.6-1.1) PWd 0.98 cm (0.6-1.1) EF (Teich) 61.20% FS 32.90% EDV (Teich) 115.50 mL ESV (Teich) 44.80 mL LV Diastology E Decel Time 183 (160-240 msec) E/A Ratio 0.8 Mitral Valve MV E Max John. 83.0 (40-130 cm/s) MV A Velocity 98.0 (40-130 cm/s) E/A Ratio 0.85 MV Decel. Time 183 (160-240 ms) Left Ventricle The left ventricle is normal size. Left ventricular systolic function is normal. The left ventricular ejection fraction is within the normal range. There is increased left ventricular wall thickness. There is normal LV segmental wall motion. Transmitral Doppler flow pattern suggests impaired LV relaxation. LVEF is 55% Right Ventricle The right ventricle is normal size. The right ventricular systolic function is normal. Atria The left atrium size is normal. The right atrium size is normal. There is no color Doppler evidence of interatrial shunt. Aortic Valve The aortic valve opens well. There is no hemodynamically significant aortic valvular stenosis. No aortic regurgitation is present. Mitral Valve The mitral valve is normal in structure. No evidence of mitral valve stenosis. Trace mitral regurgitation is present. Tricuspid Valve The tricuspid valve leaflets are thin and pliable. Trace tricuspid regurgitation. There is insufficient TR jet to estimate RVSP. Pulmonic Valve The pulmonary valve is grossly normal in structure. Trace pulmonic valve regurgitation is present. Great Vessels The aortic root is normal in size. IVC is normal in size and collapses >50% with inspiration. Pericardium There is no pericardial effusion. Other Information Study Quality: Fair Conclusion Normal biventricular systolic function. No significant valvular stenosis or regurgitation. Electronically signed by : Sandra Sabillon MD 08/05/2025 14:44:51
== END 2025-08-05 23:59 | disposition home or self-care (01) ==
LOC: RT 13:33
PROVIDERS: PCP Nurse Practitioner Family; Visit Provider Nurse Practitioner
DX: R06.02 Shortness of breath (principal); R06.09 Other forms of dyspnea; E11.9 Type 2 diabetes mellitus without complications
CPT/HCPCS: 93306